=== PATIENT | male | born 1955 | race Caucasian/White ===

== ENCOUNTER 2017-12-14 08:50 | Day surgery (SDC) | payer OTHER ==
[~2017-12-14] VITALS: Ht 180.3 cm; Wt 95.7 kg
[~2017-12-14 08:50] MED LIST: ALLO300 PO; ATOR10 PO; INDO25 PO; Lisinopril2.5 MG PO
[2018-08-21] MEDS ORDERED: LORA1 PO (09:03)
[2018-08-21] MEDS ORDERED: Zofran8 MG PO (09:03)
[2018-08-21] MEDS ORDERED: OXYC5 PO (09:03)
[2018-08-21] MEDS ORDERED: Banophen25 MG PO (09:05)
[2018-08-21] MEDS ORDERED: NEOMYCIN PO (09:06)
[2018-08-21] MEDS ORDERED: METR500 PO (09:08)
[2018-08-26] MEDS ORDERED: Percocet 5-3251 EACH PO (10:43)
== END 2017-12-14 11:14 | disposition home or self-care (01) ==
LOC: ORSCSDS 08:50
PROVIDERS: Internal Medicine Gastroenterology
PROC: 0DBH8ZX Excision of Cecum, Via Natural or Artificial Opening Endoscopic, Diagnostic (ICD-10-PCS; principal; 2017-12-14 10:15)
PROC: 0DBN8ZX Excision of Sigmoid Colon, Via Natural or Artificial Opening Endoscopic, Diagnostic (ICD-10-PCS; principal; 2017-12-14 10:15)
PROC: 0DBK8ZX Excision of Ascending Colon, Via Natural or Artificial Opening Endoscopic, Diagnostic (ICD-10-PCS; principal; 2017-12-14 10:15)
PROC: 0DBM8ZX Excision of Descending Colon, Via Natural or Artificial Opening Endoscopic, Diagnostic (ICD-10-PCS; principal; 2017-12-14 10:15)
DX: Z86.010 Personal history of colon polyps (principal); C18.0 Malignant neoplasm of cecum; D12.2 Benign neoplasm of ascending colon; D12.4 Benign neoplasm of descending colon; D12.5 Benign neoplasm of sigmoid colon; K64.8 Other hemorrhoids; I10 Essential (primary) hypertension; E78.5 Hyperlipidemia, unspecified; D64.9 Anemia, unspecified; Z79.899 Other long term (current) drug therapy
CPT/HCPCS: 88305

== ENCOUNTER 2018-01-18 11:33 | Inpatient (IN) | payer OTHER ==
[~2018-01-18] VITALS: Ht 180.3 cm; Wt 94.8 kg
[2018-01-30] MEDS ORDERED: Ferrous Sulfat325 MG PO (09:42)
[2018-02-01 04:19] LABS: BASOPHILS ABSOLUTE AUTO 0.01 K/mm3 (0.00-0.23); BASOPHILS PERCENT AUTO 0 % (0-2); EOSINOPHILS ABSOLUTE AUTO 0.06 K/mm3 (0.00-0.68); EOSINOPHILS PERCENT AUTO 1 % (0-6); Hematocrit 39.6 % (37.0-53.0); Hemoglobin 12.7 g/dL (13.5-17.5); IMMATURE GRAN ABSOLUTE AUTO 0.05 K/mm3 (0.00-0.10); IMMATURE GRAN PERCENT AUTO 1 % (0-1); LYMPHOCYTES ABSOLUTE AUTO 1.41 K/mm3 (0.84-5.20); LYMPHOCYTES PERCENT AUTO 24 % (21-46); MONOCYTES ABSOLUTE AUTO 1.12 K/mm3 (0.16-1.47); MONOCYTES PERCENT AUTO 19 % (4-13); Mean Corpuscular HGB 30.2 pg (26.0-34.0); Mean Corpuscular HGB Conc 32.1 g/dL (31.5-36.5); Mean Corpuscular Volume 94 fL (80-100); Mean Platelet Volume 10.7 fL (9.1-12.4); NEUTROPHILS ABSOLUTE AUTO 3.32 K/mm3 (1.96-9.15); NEUTROPHILS PERCENT AUTO 56 % (41-73); Platelet Count 203 K/mm3 (150-400); RDW Coefficient Variation 14.4 % (11.7-14.2); White Blood Cell Count 5.97 K/mm3 (4.00-11.30)
[2018-02-01 04:42] LABS: Percent Saturation 11.1 % (20.0-50.0)
[2018-02-01 05:16] LABS: Anion Gap 8 mmol/L (6-16); Blood Urea Nitrogen 10 mg/dL (8-24); Bun/Creatinine Ratio 12.8 (12.0-20.0); CO2, Blood 25 mmol/L (21-32); Calcium, Blood 8.3 mg/dL (8.5-10.1); Chloride, Blood 106 mmol/L (98-108); Creatinine, Blood 0.78 mg/dL (0.60-1.20); Glomerular Filtration Rate >60 (60-); Glucose, Blood 118 mg/dL (70-99); Potassium, Blood 3.9 mmol/L (3.5-5.5); Sodium, Blood 139 mmol/L (136-145)
[2018-02-01 09:40] LABS: Anion Gap 10 mmol/L (6-16); Blood Urea Nitrogen 9 mg/dL (8-24); Bun/Creatinine Ratio 12.1 (12.0-20.0); CO2, Blood 23 mmol/L (21-32); Calcium, Blood 8.1 mg/dL (8.5-10.1); Chloride, Blood 105 mmol/L (98-108); Creatinine, Blood 0.74 mg/dL (0.60-1.20); Glomerular Filtration Rate >60 (60-); Glucose, Blood 204 mg/dL (70-99); Magnesium, Blood 2.3 mg/dL (1.6-2.4); Potassium, Blood 4.1 mmol/L (3.5-5.5); Sodium, Blood 138 mmol/L (136-145); Troponin I 0.021 ng/mL (0.000-0.040)
[2018-02-04] MEDS ORDERED: LISI5 PO (10:36)
[2018-02-04] MEDS ORDERED: CARV3.125 PO (10:37)
== END 2018-02-04 13:57 | disposition home or self-care (01) | DRG 897 ==
LOC: SURS 01-31 07:21 → PRE IP 01-31 08:45 → SURS 01-31 09:57
PROVIDERS: Family Medicine; Hospitalist; Surgery
PROC: B5131ZA Fluoroscopy of Right Jugular Veins using Low Osmolar Contrast, Guidance (ICD-10-PCS; 2018-02-03)
PROC: 05HM33Z Insertion of Infusion Device into Right Internal Jugular Vein, Percutaneous Approach (ICD-10-PCS; principal; 2018-02-03 12:15)
DX: F10.239 Alcohol dependence with withdrawal, unspecified (principal); C18.0 Malignant neoplasm of cecum; I47.2 Ventricular tachycardia; I42.9 Cardiomyopathy, unspecified; I10 Essential (primary) hypertension; E78.5 Hyperlipidemia, unspecified; M10.9 Gout, unspecified; D50.9 Iron deficiency anemia, unspecified; K21.9 Gastro-esophageal reflux disease without esophagitis; Z88.0 Allergy status to penicillin; Z79.899 Other long term (current) drug therapy
CPT/HCPCS: 36415; 77001; 80048; 82607; 82728; 82746; 83540; 83550; 83735; 84443; 84484; 85025; 93005; 93010; 93306; C1788; J0330; J0690; J1100; J1642; J1956; J2060; J2250; J2405; J2765; J3010; J3411; J3475; J7042; J7120

== ENCOUNTER → 2018-05-10 | Outpatient (CLI) | payer OTHER ==
[~2018-05-10] MED LIST changes: +CARV3.125 PO; +Ferrous Sulfat325 MG PO; +LISI5 PO
== END ==
LOC: LAB SHORT 16:20 → LAB 16:20
DX: L02.91 Cutaneous abscess, unspecified (principal)
CPT/HCPCS: 87070; 87077; 87147; 87186; 87205

== ENCOUNTER 2018-05-23 17:49 | Emergency (ER) | payer OTHER ==
[~2018-05-23] VITALS: Ht 188 cm; Wt 77.1 kg
[2018-05-23 18:18] LABS: BASOPHILS ABSOLUTE AUTO 0.02 K/mm3 (0.00-0.23); BASOPHILS PERCENT AUTO 1 % (0-2); EOSINOPHILS ABSOLUTE AUTO 0.08 K/mm3 (0.00-0.68); EOSINOPHILS PERCENT AUTO 2 % (0-6); Hematocrit 31.7 % (37.0-53.0); Hemoglobin 10.6 g/dL (13.5-17.5); IMMATURE GRAN ABSOLUTE AUTO 0.01 K/mm3 (0.00-0.10); IMMATURE GRAN PERCENT AUTO 0 % (0-1); LYMPHOCYTES ABSOLUTE AUTO 1.12 K/mm3 (0.84-5.20); LYMPHOCYTES PERCENT AUTO 33 % (21-46); MONOCYTES ABSOLUTE AUTO 0.74 K/mm3 (0.16-1.47); MONOCYTES PERCENT AUTO 21 % (4-13); Mean Corpuscular HGB 32.5 pg (26.0-34.0); Mean Corpuscular HGB Conc 33.4 g/dL (31.5-36.5); Mean Corpuscular Volume 97 fL (80-100); Mean Platelet Volume 10.6 fL (9.1-12.4); NEUTROPHILS ABSOLUTE AUTO 1.48 K/mm3 (1.96-9.15); NEUTROPHILS PERCENT AUTO 43 % (41-73); Platelet Count 201 K/mm3 (150-400); RDW Coefficient Variation 18.6 % (11.7-14.2); Red Blood Cell Count 3.26 M/mm3 (4.30-5.90); White Blood Cell Count 3.45 K/mm3 (4.00-11.30)
[2018-05-23 18:39] LABS: Alanine Aminotransfer (ALT/SGP 22 U/L (12-78); Albumin/Globulin Ratio 0.8 (0.8-1.8); Alk Phos 157 U/L (50-136); Anion Gap 11 mmol/L (6-16); Aspartate Aminotrans (AST/SGOT 21 U/L (12-37); Bilirubin, Total 0.6 mg/dL (0.1-1.0); Blood Urea Nitrogen 10 mg/dL (8-24); Bun/Creatinine Ratio 15.2 (12.0-20.0); CO2, Blood 22 mmol/L (21-32); Chloride, Blood 107 mmol/L (98-108); Creatinine, Blood 0.66 mg/dL (0.60-1.20); Globulin, Blood 3.7 g/dL (2.2-4.0); Glomerular Filtration Rate >60 (60-); Glucose, Blood 132 mg/dL (70-99); Potassium, Blood 3.6 mmol/L (3.5-5.5); Sodium, Blood 140 mmol/L (136-145); Total Protein, Blood 6.7 g/dL (6.4-8.2)
== END 2018-05-23 20:42 | disposition home or self-care (01) ==
LOC: ER 17:49
PROVIDERS: Emergency Medicine
DX: R10.11 Right upper quadrant pain (principal); R10.31 Right lower quadrant pain; G89.29 Other chronic pain; E78.5 Hyperlipidemia, unspecified; Z88.0 Allergy status to penicillin; Z79.899 Other long term (current) drug therapy
CPT/HCPCS: 74022; 80053; 83690; 85025; 86850; 86900; 86901; 96361; 96374; 99284-25; J3010; J7030

== ENCOUNTER 2018-10-23 14:25 | Inpatient (IN) | payer OTHER ==
[~2018-10-23] VITALS: Ht 182.9 cm; Wt 85.4 kg
[~2018-10-23 14:25] MED LIST changes: +Banophen25 MG PO; +LORA1 PO; +METR500 PO; +NEOMYCIN PO; +OXYC5 PO; +Percocet 5-3251 EACH PO; +Zofran8 MG PO
[2018-10-23 15:55] LABS: BASOPHILS ABSOLUTE AUTO 0.01 K/mm3 (0.00-0.23); BASOPHILS PERCENT AUTO 1 % (0-2); EOSINOPHILS ABSOLUTE AUTO 0.01 K/mm3 (0.00-0.68); EOSINOPHILS PERCENT AUTO 1 % (0-6); Hemoglobin 10.3 g/dL (13.5-17.5); IMMATURE GRAN ABSOLUTE AUTO 0.04 K/mm3 (0.00-0.10); IMMATURE GRAN PERCENT AUTO 2 % (0-1); LYMPHOCYTES ABSOLUTE AUTO 0.49 K/mm3 (0.84-5.20); LYMPHOCYTES PERCENT AUTO 28 % (21-46); MONOCYTES ABSOLUTE AUTO 0.15 K/mm3 (0.16-1.47); MONOCYTES PERCENT AUTO 9 % (4-13); Mean Corpuscular HGB Conc 31.2 g/dL (31.5-36.5); Mean Corpuscular Volume 93 fL (80-100); NEUTROPHILS ABSOLUTE AUTO 1.03 K/mm3 (1.96-9.15); NEUTROPHILS PERCENT AUTO 60 % (41-73); Platelet Count 118 K/mm3 (150-400); RDW Coefficient Variation 17.1 % (11.7-14.2); RDW Standard Deviation 59.1 fL (35.1-46.3); Red Blood Cell Count 3.55 M/mm3 (4.30-5.90); White Blood Cell Count 1.73 K/mm3 (4.00-11.30)
[2018-10-23 16:15] LABS: International Normalized Ratio 2.99; Prothrombin Time Results 28.7 Sec (9.7-11.5)
[2018-10-23 16:19] LABS: Alanine Aminotransfer (ALT/SGP 76 U/L (12-78); Albumin, Blood 2.4 g/dL (3.4-5.0); Albumin/Globulin Ratio 0.7 (0.8-1.8); Alk Phos 411 U/L (50-136); Anion Gap 14 mmol/L (6-16); Aspartate Aminotrans (AST/SGOT 149 U/L (12-37); Bilirubin, Total 1.6 mg/dL (0.1-1.0); Blood Urea Nitrogen 19 mg/dL (8-24); Bun/Creatinine Ratio 23.3 (12.0-20.0); CO2, Blood 23 mmol/L (21-32); Calcium, Blood 7.6 mg/dL (8.5-10.1); Chloride, Blood 94 mmol/L (98-108); Creatinine, Blood 0.82 mg/dL (0.60-1.20); Globulin, Blood 3.3 g/dL (2.2-4.0); Glomerular Filtration Rate >60 (60-); Glucose, Blood 230 mg/dL (70-99); Potassium, Blood 4.3 mmol/L (3.5-5.5); Sodium, Blood 131 mmol/L (136-145); Total Protein, Blood 5.7 g/dL (6.4-8.2)
[2018-10-23] MEDS ORDERED: ALBU90OI INH (16:26)
[2018-10-24 00:32] LABS: Bilirubin, Urine Neg (Neg); Blood, Urine Neg (Neg); Glucose Qualitative, Urine Neg (Neg); Ketones, Urine Neg (Neg); Leukocyte Esterase, Urine Neg (Neg); Nitrite, Urine Neg (Neg); Protein, Urine Neg (Neg); Source, Urine Clean Catch; Urobilinogen, Urine NORM (Normal)
[2018-10-24 00:37] LABS: Appearance, Urine Clear (Clear); Color, Urine Yellow (P-Yellow)
--- NOTE | 2018-10-24 04:29 | NUR ---
SHIFT SUMMARY PT ADMITTED FOR PNEUMONIA. ALERT AND ORIENTED, HAS HISTORY OF ASBERGERS. USES THE URINAL AT BEDSIDE WITHOUT DIFFICULTIES. PT CAREGIVER HERE UPON PT ARRIVAL TO UNIT. 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 PT DENIES ANY PAIN UPON ARRIVAL, WILL CONTINUE TO MONITOR.
[2018-10-24 05:45] LABS: BASOPHILS ABSOLUTE AUTO 0.01 K/mm3 (0.00-0.23); BASOPHILS PERCENT AUTO 1 % (0-2); EOSINOPHILS ABSOLUTE AUTO 0.04 K/mm3 (0.00-0.68); EOSINOPHILS PERCENT AUTO 2 % (0-6); Hemoglobin 11.5 g/dL (13.5-17.5); IMMATURE GRAN ABSOLUTE AUTO 0.03 K/mm3 (0.00-0.10); IMMATURE GRAN PERCENT AUTO 2 % (0-1); LYMPHOCYTES ABSOLUTE AUTO 0.61 K/mm3 (0.84-5.20); LYMPHOCYTES PERCENT AUTO 32 % (21-46); MONOCYTES ABSOLUTE AUTO 0.22 K/mm3 (0.16-1.47); MONOCYTES PERCENT AUTO 11 % (4-13); Mean Corpuscular HGB 28.4 pg (26.0-34.0); Mean Corpuscular HGB Conc 31.9 g/dL (31.5-36.5); Mean Platelet Volume 12.3 fL (9.1-12.4); NEUTROPHILS ABSOLUTE AUTO 1.02 K/mm3 (1.96-9.15); NEUTROPHILS PERCENT AUTO 53 % (41-73); Platelet Count 124 K/mm3 (150-400); RDW Coefficient Variation 17.1 % (11.7-14.2); RDW Standard Deviation 55.4 fL (35.1-46.3); Red Blood Cell Count 4.05 M/mm3 (4.30-5.90); White Blood Cell Count 1.93 K/mm3 (4.00-11.30)
[2018-10-24 05:53] LABS: Mean Corpuscular Volume 89 fL (80-100)
[2018-10-24 06:08] LABS: Anion Gap 10 mmol/L (6-16); Blood Urea Nitrogen 16 mg/dL (8-24); CO2, Blood 25 mmol/L (21-32); Calcium, Blood 7.4 mg/dL (8.5-10.1); Chloride, Blood 96 mmol/L (98-108); Glomerular Filtration Rate >60 (60-); Glucose, Blood 150 mg/dL (70-99); Potassium, Blood 3.9 mmol/L (3.5-5.5); Sodium, Blood 131 mmol/L (136-145)
--- NOTE | 2018-10-24 08:33 | NUR ---
RECHECKED PATIENTS HEART RATE, WAS IN 130S. DR. MUÑOZ NOTIFIED. TELE ORDERED. MEDICATED PER EMAR. PATIENT ASYMPTOMATIC. RN WILL CONTINUE TO MONITOR.
--- NOTE | 2018-10-24 09:23 | NUR ---
VOCATIONAL REHABILITATION CONSULTANT CALLED TO REPORT A HEART RATE IN THE 160S. DR. MUÑOZ NOTIFIED.
[2018-10-24 12:31] LABS: International Normalized Ratio 2.28; Prothrombin Time Results 22.4 Sec (9.7-11.5)
[2018-10-24 13:34] LABS: Magnesium, Blood 1.5 mg/dL (1.6-2.4)
[2018-10-24 13:37] LABS: Phosphorus, Blood 1.8 mg/dL (2.5-4.9); Thyroid Stimulating Hormone 3.41 uIU/mL (0.360-4.800)
[2018-10-24 17:17] LABS: Vancomycin, Trough 10.3 ug/mL (5.0-10.0)
--- NOTE | 2018-10-24 17:19 | NUR ---
SHIFT SUMMARY PATIENT A&O X4, SBA TO BATHROOM. USES URINAL AT THE BEDSIDE APPROPRIATEY. DENIES SOB. MEDICATED X1 FOR PAIN AND NAUSEA THIS SHIFT. STATES PAIN IS IN HIS ABDOMINAL AREA, RESOLVED WITH MEDICATION. TELE AFIB @ 150-160 AT BEGINGING OF THE SHIFT. NEW ONSET. DR. MUÑOZ NOTIFEID. WENT FOR CT TODAY. RESTED THROUGHOUT THE SHIFT. FAMILY CAME BY TO VISIT. BED IN LOWEST POWITION, CALL LIGHT IS WITHIN REACH. NO OTHER ACUTE CHANGES, RN WILL CONINUE TO MONITOR.
--- NOTE | 2018-10-24 18:45 | NUR ---
Mr. Briggs, "Jorgito" was welcoming of visit. He appeared to slip in and out of lucidity--falling asleep mid-sentance. He tells me he knows his cancer dc is not going well. He states that he is not afraid of . That said, he does not think he is nearing the end of his journey. He lives alone, but tells me has strong support of good friends. We was appreciaitive of prayer and gentle encouragement. We had an easy rapport. I will remain available.
--- NOTE | 2018-10-25 05:33 | NUR ---
SHIFT SUMMARY PT HAD UNEVENTFUL NIGHT. TELE READS AFIB AT 95 PER TEMPERING KILN TENDER. PT AWAKE THIS AM. ASKING ABOUT HIS ROQUE TIFF, UNABLE TO FIND. CALL PLACED TO RADIOLOGY AND ER, NOT FOUND. WILL HAVE DAY NURSE CALL LOST AND FOUND TO SEE IF IT'S THERE. ALSO PT TO CALL CAREGIVER AND SEE IF SHE HAS IT. PT DENIES ANY PAIN. WILL CONTINUE TO MONITOR.
[2018-10-25 05:39] LABS: BASOPHILS PERCENT AUTO 0 % (0-2); EOSINOPHILS ABSOLUTE AUTO 0.03 K/mm3 (0.00-0.68); EOSINOPHILS PERCENT AUTO 2 % (0-6); Hematocrit 38.8 % (37.0-53.0); Hemoglobin 12.5 g/dL (13.5-17.5); IMMATURE GRAN ABSOLUTE AUTO 0.01 K/mm3 (0.00-0.10); IMMATURE GRAN PERCENT AUTO 1 % (0-1); LYMPHOCYTES ABSOLUTE AUTO 0.58 K/mm3 (0.84-5.20); LYMPHOCYTES PERCENT AUTO 36 % (21-46); MONOCYTES ABSOLUTE AUTO 0.22 K/mm3 (0.16-1.47); MONOCYTES PERCENT AUTO 14 % (4-13); Mean Corpuscular HGB 28.5 pg (26.0-34.0); Mean Corpuscular HGB Conc 32.2 g/dL (31.5-36.5); Mean Corpuscular Volume 88 fL (80-100); Mean Platelet Volume 11.9 fL (9.1-12.4); NEUTROPHILS ABSOLUTE AUTO 0.78 K/mm3 (1.96-9.15); NEUTROPHILS PERCENT AUTO 48 % (41-73); Platelet Count 198 K/mm3 (150-400); RDW Coefficient Variation 17.3 % (11.7-14.2); RDW Standard Deviation 55.2 fL (35.1-46.3); Red Blood Cell Count 4.39 M/mm3 (4.30-5.90); White Blood Cell Count 1.62 K/mm3 (4.00-11.30)
[2018-10-25 06:08] LABS: Alanine Aminotransfer (ALT/SGP 45 U/L (12-78); Albumin, Blood 2.1 g/dL (3.4-5.0); Albumin/Globulin Ratio 0.7 (0.8-1.8); Alk Phos 390 U/L (50-136); Anion Gap 10 mmol/L (6-16); Aspartate Aminotrans (AST/SGOT 86 U/L (12-37); Bilirubin, Total 1.3 mg/dL (0.1-1.0); Blood Urea Nitrogen 12 mg/dL (8-24); Bun/Creatinine Ratio 16.1 (12.0-20.0); CO2, Blood 27 mmol/L (21-32); Calcium, Blood 7.5 mg/dL (8.5-10.1); Chloride, Blood 97 mmol/L (98-108); Creatinine, Blood 0.75 mg/dL (0.60-1.20); Glomerular Filtration Rate >60 (60-); Glucose, Blood 107 mg/dL (70-99); Potassium, Blood 4.2 mmol/L (3.5-5.5); Sodium, Blood 134 mmol/L (136-145); Total Protein, Blood 5.1 g/dL (6.4-8.2)
--- NOTE | 2018-10-25 16:01 | NUR ---
SHIFT SUMMARY NO ACUTE CHANGES. PATIENT RESTED MOST OF DAY. MEDICATED X 1 FOR PAIN. DENIES SHORTNESS OF BREATH OR NAUSEA. DOCTOR DISCUSSED HOSPICE WITH PATIENT. NO DECISION MADE YET. CALL LIGHT IN REACH, WILL CONTINUE TO MONITOR.
--- NOTE | 2018-10-25 20:10 | NUR ---
Attempted to see pt twice this evening. Last attempt pt was asleep in a darkened room after dinner meal. He did not awaken to verbal or gentle tactile stimuli. Will report to [facility] staff working tomorrow re: conversations with Dr Gibbs and plan for [facility] visit.
--- NOTE | 2018-10-26 04:14 | NUR ---
SHIFT SUMMARY PT ADMITTED FOR PNEUMONIA WITH CHEST X-RAY SHOWING BILATERAL PLEURAL EFFUSIONS WITH THE LEFT GREATER THEN THE RIGHT. PT NEEDS A SPUTUM CULTURE BUT UNABLE TO OBTAIN SO FAR THIS SHIFT PT HAS NOT APPEARED TO HAVE A COUGH. FULL CODE. NEUTROPENIC DIET. TELE-A-FIB WITH PVCS AT A RATE OF 124 PER REFRIGERATOR CRATER. CARDIOLOGY CONSULT ORDERED FOR DVT WITH ELEVATED INR AT 2.99 FROM LIVER METS NO ON COUMADIN AND NEW ONSET A-FIB WITH RVT AT A RATE OF 150-160. 20 G IV TO L WRIST AND R AC. STANDBY ASSIST WITH TRANSFERS PER REPORT. TAKES MEDICATIONS WHOLE WITH WATER. PT HAS A MEDIPORT TO RIGHT CHEST THAT IS NOT ACCESSED. THE PT PRESENTED TO THE ED WITH C/O COUGH. THE PT HAS A PAST HISTORY OF COLON CANCER S/P COLECTOMY WITH METS TO THE LIVER AND LUNGS. THE PT RESTARTED CHEMO LAST WEEK PER REPORT. THE PT ALSO HAS A PAST HISTORY OF ALCOHOLIC CARDIOMYOPATHY WITH AND EF OF 25%. 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 IT HAS BEEN DISCUSSED AND RECOMMENDED THAT PT DISCUSS CODE STATUS WITH PALLIATIVE CARE. THE PT STATED THAT HE WOULD LIKE HIS SISTER TO BE INVOLVED, NUMBER IS ON THE BOARD. THE PT REPORTS THAT HE IS COLD FREQUENTLY, WARM BLANKETS AND INCREASED HEAT. THE PT APPEARS TO BE SLEEPING COMFORTABLY AT THIS TIME WITH NO APPARENT SIGNS OF ACUTE DISTRESS. ABLE TO MAKE NEEDS KNOWN AND CALL LIGHT IN REACH.
[2018-10-26 06:06] LABS: BASOPHILS ABSOLUTE AUTO 0.01 K/mm3 (0.00-0.23); BASOPHILS PERCENT AUTO 0 % (0-2); EOSINOPHILS ABSOLUTE AUTO 0.03 K/mm3 (0.00-0.68); EOSINOPHILS PERCENT AUTO 1 % (0-6); Hematocrit 37.9 % (37.0-53.0); Hemoglobin 11.7 g/dL (13.5-17.5); IMMATURE GRAN ABSOLUTE AUTO 0.01 K/mm3 (0.00-0.10); IMMATURE GRAN PERCENT AUTO 0 % (0-1); LYMPHOCYTES ABSOLUTE AUTO 1.04 K/mm3 (0.84-5.20); LYMPHOCYTES PERCENT AUTO 40 % (21-46); MONOCYTES ABSOLUTE AUTO 0.36 K/mm3 (0.16-1.47); MONOCYTES PERCENT AUTO 14 % (4-13); Mean Corpuscular HGB 28.1 pg (26.0-34.0); Mean Corpuscular HGB Conc 30.9 g/dL (31.5-36.5); Mean Platelet Volume 11.3 fL (9.1-12.4); NEUTROPHILS ABSOLUTE AUTO 1.13 K/mm3 (1.96-9.15); NEUTROPHILS PERCENT AUTO 44 % (41-73); Platelet Count 189 K/mm3 (150-400); RDW Coefficient Variation 18.1 % (11.7-14.2); RDW Standard Deviation 58.1 fL (35.1-46.3); Red Blood Cell Count 4.17 M/mm3 (4.30-5.90); White Blood Cell Count 2.58 K/mm3 (4.00-11.30)
[2018-10-26 06:10] LABS: Mean Corpuscular Volume 91 fL (80-100)
[2018-10-26 06:21] LABS: International Normalized Ratio 1.42; Prothrombin Time Results 14.6 Sec (9.7-11.5)
[2018-10-26 06:28] LABS: Alanine Aminotransfer (ALT/SGP 38 U/L (12-78); Albumin, Blood 1.9 g/dL (3.4-5.0); Albumin/Globulin Ratio 0.6 (0.8-1.8); Alk Phos 392 U/L (50-136); Anion Gap 8 mmol/L (6-16); Aspartate Aminotrans (AST/SGOT 73 U/L (12-37); Bilirubin, Total 1.1 mg/dL (0.1-1.0); Blood Urea Nitrogen 11 mg/dL (8-24); Bun/Creatinine Ratio 14.2 (12.0-20.0); CO2, Blood 28 mmol/L (21-32); Calcium, Blood 7.3 mg/dL (8.5-10.1); Chloride, Blood 98 mmol/L (98-108); Creatinine, Blood 0.78 mg/dL (0.60-1.20); Glomerular Filtration Rate >60 (60-); Glucose, Blood 91 mg/dL (70-99); Potassium, Blood 3.8 mmol/L (3.5-5.5); Sodium, Blood 134 mmol/L (136-145); Total Protein, Blood 4.9 g/dL (6.4-8.2)
--- NOTE | 2018-10-26 08:51 | NUR ---
AFIB RATE IN 160S, CALLED DR MUÑOZ. SHE STATES TO WAIT UNTIL PO METOPROLOL TAKES EFFECT, PT IS ASYMPTOMATIC (ASIDE FROM VAGUE MILD NAUSEA) AND HE IS VERY SENSITIVE TO BP MEDS. PT WILL DC WITH HOSPICE TODAY MOST LIKELY. WILL RECHECK IN 10 MINUTES.
[2018-10-26] MEDS ORDERED: Bisac-Evac10 MG PR (13:51)
[2018-10-26] MEDS ORDERED: ALBU3IS INH (13:51)
[2018-10-26] MEDS ORDERED: METO25 PO (13:52)
[2018-10-26] MEDS ORDERED: ACET120S PR (13:55)
[2018-10-26] MEDS ORDERED: HYOS.125 SL (13:56)
[2018-10-26] MEDS ORDERED: HALO.5 PO (13:56)
[2018-10-26] MEDS ORDERED: LORA.5 PO (13:57)
[2018-10-26] MEDS ORDERED: PROC5 PO (13:57)
--- NOTE | 2018-10-26 15:22 | NUR ---
DISCHARGE SUMMARY JOLYNN LEFT WITH HIS FRIEND TO GO HOME WITH HOSPICE. MEDS FAXED TO [facility] IN [place]. PAPERWORK REVIEWED, PIVS REMOVED. DENIED PAIN. PRIOR TO TELE GETTING REMOVED, PT WAS AFIB IN 160S. 2 DOSES OF 12.5MG METOPROLOL PO GIVEN PER DR MUÑOZ. NO FURTHER INTERVENTIONS AT THIS TIME. PT ASYMPTOMATIC WITH AFIB RATE. SBA IN ROOM. TOOK PILLS PRESCRIBED. DALIA SMITH SPOKE AT LENGTH W PT FOR ARRANGING NEBULIZER, PT WILL STATION ENGINEER ON THEIR WAY HOME FROM [facility]. LEFT AT 1505.
== END 2018-10-26 14:47 | disposition hospice, home (50) | DRG 871 ==
LOC: ER 14:25 → MEDS 18:55
PROVIDERS: Internal Medicine; Physician Assistant; ADMIT Student in an Organized Health Care Education/Training Program
DX: A41.9 Sepsis, unspecified organism (principal); J18.9 Pneumonia, unspecified organism; I50.22 Chronic systolic (congestive) heart failure; C78.7 Secondary malignant neoplasm of liver and intrahepatic bile duct; C78.00 Secondary malignant neoplasm of unspecified lung; C18.0 Malignant neoplasm of cecum; I42.6 Alcoholic cardiomyopathy; I82.442 Acute embolism and thrombosis of left tibial vein; I82.890 Acute embolism and thrombosis of other specified veins; R65.20 Severe sepsis without septic shock; Z92.21 Personal history of antineoplastic chemotherapy; M10.9 Gout, unspecified; E78.5 Hyperlipidemia, unspecified; Z90.49 Acquired absence of other specified parts of digestive tract; F10.10 Alcohol abuse, uncomplicated; I48.91 Unspecified atrial fibrillation; I10 Essential (primary) hypertension; D50.9 Iron deficiency anemia, unspecified; Z51.5 Encounter for palliative care
CPT/HCPCS: 36415; 71046; 71260; 80048; 80053; 80202; 81003; 83605; 83735; 83880; 84100; 84145; 84443; 85025; 85610; 85730; 87040; 87086; 93005; 93010; 93308; 93321; 93971; 94640; 94760; 96361; 96365; 96366; 96367; 96375; 99285-25; J1940; J1956; J2405; J3370; J7120; Q9967

== ENCOUNTER 2018-11-22 09:29 | Inpatient (IN) | payer OTHER ==
[~2018-11-22] VITALS: Ht 182.9 cm; Wt 78.1 kg
[~2018-11-22 09:29] MED LIST changes: +ACET120S PR; +ALBU90OI INH; +Bisac-Evac10 MG PR; +HALO.5 PO; +HYOS.125 SL
[2018-11-22 10:40] LABS: BASOPHILS ABSOLUTE AUTO 0.04 K/mm3 (0.00-0.23); BASOPHILS PERCENT AUTO 0 % (0-2); EOSINOPHILS ABSOLUTE AUTO 0.01 K/mm3 (0.00-0.68); EOSINOPHILS PERCENT AUTO 0 % (0-6); Hematocrit 40.7 % (37.0-53.0); Hemoglobin 12.3 g/dL (13.5-17.5); IMMATURE GRAN ABSOLUTE AUTO 0.22 K/mm3 (0.00-0.10); IMMATURE GRAN PERCENT AUTO 2 % (0-1); LYMPHOCYTES ABSOLUTE AUTO 0.55 K/mm3 (0.84-5.20); LYMPHOCYTES PERCENT AUTO 6 % (21-46); MONOCYTES ABSOLUTE AUTO 1.36 K/mm3 (0.16-1.47); MONOCYTES PERCENT AUTO 14 % (4-13); Mean Corpuscular HGB 28.1 pg (26.0-34.0); Mean Corpuscular HGB Conc 30.2 g/dL (31.5-36.5); Mean Corpuscular Volume 93 fL (80-100); Mean Platelet Volume 11.4 fL (9.1-12.4); NEUTROPHILS PERCENT AUTO 77 % (41-73); Platelet Count 336 K/mm3 (150-400); RDW Coefficient Variation 20.6 % (11.7-14.2); RDW Standard Deviation 68.5 fL (35.1-46.3); Red Blood Cell Count 4.37 M/mm3 (4.30-5.90); White Blood Cell Count 9.48 K/mm3 (4.00-11.30)
[2018-11-22 11:01] LABS: Albumin, Blood 2.6 g/dL (3.4-5.0); Albumin/Globulin Ratio 0.6 (0.8-1.8); Bilirubin, Total 2.3 mg/dL (0.1-1.0); Bun/Creatinine Ratio 23.8 (12.0-20.0); Calcium, Blood 9.3 mg/dL (8.5-10.1); Creatinine, Blood 1.47 mg/dL (0.60-1.20); Globulin, Blood 4.2 g/dL (2.2-4.0); Total Protein, Blood 6.8 g/dL (6.4-8.2)
[2018-11-22] MEDS ORDERED: **incomplete med rec (13:05)
[2018-11-22] MEDS ORDERED: ALBU3IS NEB (13:30)
[2018-11-22] MEDS ORDERED: LORA.5 PO (13:31)
[2018-11-22] MEDS ORDERED: METO25 PO (13:32)
[2018-11-22] MEDS ORDERED: PROC5 PO (13:33)
[2018-11-22] MEDS ORDERED: Oxycodone HCl20 M1 PO (13:35)
[2018-11-22] MEDS ORDERED: CARV6.25 PO (13:35)
[2018-11-22] MEDS ORDERED: Ondansetron Odt8 MG MM (13:37)
[2018-11-22] MEDS ORDERED: FURO40 PO (13:38)
[2018-11-22] MEDS ORDERED: POTCHL20ER PO (13:39)
[2018-11-22 14:44] LABS: Magnesium, Blood 2.3 mg/dL (1.6-2.4); Phosphorus, Blood 5.7 mg/dL (2.5-4.9)
--- NOTE | 2018-11-22 16:38 | NUR ---
NURSING PCU ADMISSION/DAYSHIFT SUMMARY: Assumed care of pt at approx 1605. Arrived from ER via gurney, xferred to unit bed via slider sheet. Pt is lethargic, speech is slurred, moans at rest and w/positioning, occasionally yells out. Pt only cooperative w/some aspects of care, tries to get OOB and is pulling at lines. General weakness noted, appears forgetful, impulsive at times. Pt appears frail and thin upon arrival. Tele in place, afib w/HR 120-140's, SBP 90's, 1+ BLE edema. L/S dim t/o w/scattered crackles, respirations shallow and uneven, denies dyspnea, O2 sat low 90's on RA, occ INSTRUCTIONAL SERVICES SPECIALIST cough, cont O2 monitoring in place. Abd moderately distended and firm, tender w/mild palpitation, BT hypoactive, intermittent nausea w/small amt of brown/liquid emesis which pt states is from coffee. Pt incontinent of urine, FC placed for strict I/O, draining dark yellow urine, stat lock in place. PIV x1, 2nd LR bolus infusing, unaccessed mediport noted to RCW. Pt appears fragile at this time. Call light in reach, bed alarm set for safety purposes. Admission d/o received and reviewed. Frequent monitoring and rounding required. Will continue to monitor until rpt is given to NOC RN and will notify PMD of any changes.
[2018-11-22 16:41] LABS: Source, Urine Catheter
[2018-11-22 16:43] LABS: Appearance, Urine Hazy (Clear); Blood, Urine 2+ (Neg); Color, Urine Amber (P-Yellow); Glucose Qualitative, Urine Neg (Neg); Ketones, Urine 1+ (Neg); Leukocyte Esterase, Urine 1+ (Neg); Nitrite, Urine Pos (Neg); Protein, Urine 2+ (Neg); Specific Gravity, Urine 1.025 (1.003-1.022); Urobilinogen, Urine 2+ (Normal)
[2018-11-22 16:47] LABS: Bilirubin, Urine 2+ (Neg)
[2018-11-22 16:57] LABS: U Cannabinoids Screen DETECTED; U Opiates Screen DETECTED
[2018-11-22 16:58] LABS: U Amphetamine Screen Not Detected; U Barbituate Screen Not Detected; U Benzodiazapine Screen DETECTED; U Buprenorphine Screen Not Detected; U Cocaine Screen Not Detected; U Methadone Screen Not Detected; U Methamphetamine Screen Not Detected; U Oxycodone Screen DETECTED; U Phencyclidine Screen Not Detected; U Propoxyphene Screen Not Detected
[2018-11-22 16:59] LABS: Squamous Epithelial Cells Mod /hpf (Few)
[2018-11-22 17:00] LABS: Bacteria Few /hpf; Hyaline Casts 25-50 /lpf (0-2); Red Blood Cells, Urine Not Seen /hpf (0-2)
--- NOTE | 2018-11-22 20:01 | NUR ---
UPDATE: NURSE PRACTIONER CANELO NOTIFIED OF PATIENT'S CRITICAL LACTIC LEVELS. NURSE PRACTIONER CANELO ALSO NOTIFED OF PATIENTS LOWER BLOOD PRESSURE WELL PATIENT'S HEART RATE THAT HAS BEEN TRENDING AFIB IN THE 130'S TO 140'S. CANELO ALSO NOTIFED THAT PATIENT WAS PALCED ON 2L O2 AND IS STATING AT 92%-94%. HOWEVER, PATIENT WILL NOT KEEP O2 IN PLACE, REPLACED EACH TIME. JOSE ALSO NOTIFIED THAT CRACKLES WERE HEARD THROUGHT IN PATIENT'S LUNGS. CANELO NOTIFIED OF PATIENT'S NAUSEA AND SWOLLEN ABD WELL. CANELO STATED THAT HE WOULD REVIEW PATIENT'S CHART AND ENTER ORDERS IF HE FLET IT NEEDED. JOSE AWARE PATIENT IS FULL CODE AT THIS TIME.
--- NOTE | 2018-11-22 20:24 | NUR ---
NURSE PRACTIONER CANELO IN TO SEE PATIENT SEVERAL MINUTES AGO AND ASSESSED PATIENT.
--- NOTE | 2018-11-22 21:00 | NUR ---
CODE STATUS CONFIRMED CODE STATUS WITH GONZALEZ MCKEON; PT IS A DNR IF CARDIAC ARREST OCCURS AGAIN.
--- NOTE | 2018-11-22 21:00 | NUR ---
ASSUMED PT CARE PT INTUBATED WITH ETT 8.0; ADVANCED FROM 25CM TO 26CM AT THE LIP PER KEYLINER CANELO'S ORDERS. PT IS ON NO SEDATION WITH NO RESPONSE TO VERBAL OR PAINFUL STIMULI; NO PURPOSEFUL MOVEMENTS. PUPILS ARE FIXED AT 2MM WITH BILATERAL UPWARD GAZE NOTED. NO COUGH, GAG, OR SWALLOW RELFEX NOTED. VENT SETTINGS: AC 16; TV 400; PEEP 5; FIO2 100% WITH OXYGEN SATURATIONS 100%. COPIOUS AMOUNTS OF COFFEE GROUND/BLOOD TINGED SECRETIONS BEING SUCTIONED FROM OG; TOTAL OF 2000 SUCTIONED POST CARDIAC ARREST. NO FAMILY AT BEDSIDE AT THIS TIME; HOWEVER, REPORTING OFF RN STATED SHE DID CALL AND UPDATE THE FAMILY. PT IS IN BILATERAL SOFT WRIST RESTRAINTS AT THIS TIME. GONZALEZ LEMOS AT BEDSIDE.
--- NOTE | 2018-11-22 21:17 | NUR ---
EVENT NOTE: AT APPROX 2032 RN PRESENT IN ROOM WHEN PATIENT'S BIOX STARTED ALARMING DUE TO O2 STATS BEING IN THE 80'S. RN TURNED TO SEE PATIENT WITH A BLANK LOOK ON HIS FACE AND HIS EYES APPEARED ROLLED BACK INTO HIS HEAD. HEAD OF BED UP AT APPOX A 60 DEGREE ANGLE. PATIENT STILL BREATHING AND STILL HAD A PULSE. HOWEVER THEY WERE SHALLOW AND GASPY BREATHS. CHARGE NURSE JAGRUTI BACON RN CALLED TO THE ROOM AND A RAPID RESPONSE WAS CALLED. CHARGE NURSE PRESENT IN THE ROOM. PATIENT APPEARED TO START VOMITING BROWN LIQUID AT THIS TIME. PATIENT THEN APPEARED TO START AGINAL BREATHING AND NO PULSE WAS ABLE TO BE PALPATED AT THIS TIME. A CODE WAS THEN CALLED (SEE CODE SHEET). PATIENT TRANSFERED TO ICU 13 AND REPORT GIVEN TO CIARA TERRY. PATIENT'S SISTER STEPHEN WAS UPDATED ON CHANGE IN PATIENT CONDITION AND TRANSFER TO ICU. PATIENT'S BREATHING BECAME GASPY AND PATIENT'S EYES ROLLED HACKSAW INSPECTOR CALLED TO ROOM.
[2018-11-22 21:31] LABS: BASOPHILS ABSOLUTE AUTO 0.01 K/mm3 (0.00-0.23); BASOPHILS PERCENT AUTO 0 % (0-2); EOSINOPHILS PERCENT AUTO 0 % (0-6); Hematocrit 34.4 % (37.0-53.0); Hemoglobin 10.3 g/dL (13.5-17.5); IMMATURE GRAN ABSOLUTE AUTO 0.07 K/mm3 (0.00-0.10); IMMATURE GRAN PERCENT AUTO 1 % (0-1); LYMPHOCYTES ABSOLUTE AUTO 0.71 K/mm3 (0.84-5.20); LYMPHOCYTES PERCENT AUTO 11 % (21-46); MONOCYTES ABSOLUTE AUTO 0.95 K/mm3 (0.16-1.47); MONOCYTES PERCENT AUTO 15 % (4-13); Mean Corpuscular HGB 28.5 pg (26.0-34.0); Mean Corpuscular HGB Conc 29.9 g/dL (31.5-36.5); Mean Corpuscular Volume 95 fL (80-100); Mean Platelet Volume 11.5 fL (9.1-12.4); NEUTROPHILS ABSOLUTE AUTO 4.57 K/mm3 (1.96-9.15); NEUTROPHILS PERCENT AUTO 72 % (41-73); Platelet Count 288 K/mm3 (150-400); RDW Coefficient Variation 20.3 % (11.7-14.2); RDW Standard Deviation 69.4 fL (35.1-46.3); Red Blood Cell Count 3.62 M/mm3 (4.30-5.90); White Blood Cell Count 6.31 K/mm3 (4.00-11.30)
[2018-11-22 21:31] LABS: PCO2 Arterial 40.9 mmHg (35-45); PO2 Arterial 182 mmHg (80-100); pH Blood Arterial 7.41 (7.35-7.45)
[2018-11-22 21:50] LABS: International Normalized Ratio 2.96; Prothrombin Time Results 28.4 Sec (9.7-11.5)
[2018-11-22 21:52] LABS: Albumin, Blood 2.1 g/dL (3.4-5.0); Albumin/Globulin Ratio 0.6 (0.8-1.8); Bilirubin, Total 1.6 mg/dL (0.1-1.0); Bun/Creatinine Ratio 25.5 (12.0-20.0); Calcium, Blood 7.8 mg/dL (8.5-10.1); Creatinine, Blood 1.53 mg/dL (0.60-1.20); Globulin, Blood 3.4 g/dL (2.2-4.0); Magnesium, Blood 2.1 mg/dL (1.6-2.4); Phosphorus, Blood 6.4 mg/dL (2.5-4.9); Potassium, Blood 3.7 mmol/L (3.5-5.5); Total Protein, Blood 5.5 g/dL (6.4-8.2); Troponin I 0.034 ng/mL (0.000-0.040)
--- NOTE | 2018-11-22 22:29 | NUR ---
RT x3 responded to RING MAKING MACHINE OPERATOR and eventually code blue in PCU. -No pulses found, CPR and BVM started -Oral sx copious dark brown secretions -ER MD intubated at 2039 with 8.0 ETT 26 at lip initially. Verbal per ER MD to withdraw to 24 at lip. -ETT sx; Large amount of dark brown secretions from ETT, similar to oral sx. -EtCO2 monirot unable to be placed due to large amount of secretions through ETT and would plug up the sensor. -SpO2 was poor quality, PEEP valve added to BVM and set to 10. -During CXR, ETT migrated to 25 when taken. -Post CXR, verbal per Sam CONDITIONER TENDER to advance 1cm to 26 at lip. -2100 PT transported to ICU
--- NOTE | 2018-11-22 23:04 | NUR ---
NOTIFIED PHYSICIAN UPDATE REGARDING LACTIC ACID CRITICALLY AT 6.9; EKG COMPLETED WITH RESULTS OF AFIB WITH RVR; HR 121; LEVOPHED AT 15MCG/MIN WITH SBP 90'S WITH MAP 70; EJECTION FRACTION CONFIRMED AT LESS THAN 20%; MIKE SOLAR INSTALLATION FOREMAN CONFIRMED TO D/C FLUIDS AFTER THIS BAG IS COMPLETED. RECEIVED ORDERS TO START VASOPRESSIN AND MIKE, SOLAR INSTALLATION FOREMAN STATED HE WOULD ENTER REPEAT LABS FOR LACTIC ACID, WELL INPUT MORNING LABS. FAMILY/FRIENDS AT BEDSIDE AT THIS TIME.
--- NOTE | 2018-11-23 00:06 | NUR ---
SPOKE WITH PHYSICIAN MIKE, NEGATIVE TURNER CALLED WANTING AN UPDATE ABOUT FAMILY. ALSO, STATED TO KEEP NS INFUSING AT 75MLS/HR AND TO MONITOR URINE OUTPUT CLOSELY. ORDERS TO UPDATE DR. MAYNARD IN 1-2 HOURS IF PT CONTINUES NOT MAKING URINE.
[2018-11-23 01:39] LABS: Hematocrit 35.9 % (37.0-53.0)
--- NOTE | 2018-11-23 02:30 | NUR ---
UPDATED DR. MAYNARD UPDATED REGARDING LOW URINE OUTPUT; 10CC IN THE LAST TWO HOURS; 35CC TOTAL SINCE 2100 ON 11/22/18. NO NEW ORDERS; DR. MAYNARD WANTS FLUIDS TO MAINTAIN AT 75MLS/HR.
[2018-11-23 05:20] LABS: PCO2 Arterial 36.2 mmHg (35-45); PO2 Arterial 64.3 mmHg (80-100); pH Blood Arterial 7.49 (7.35-7.45)
[2018-11-23 05:22] LABS: Hematocrit 35.6 % (37.0-53.0); Hemoglobin 10.9 g/dL (13.5-17.5); Mean Corpuscular HGB 28.6 pg (26.0-34.0); Mean Corpuscular HGB Conc 30.6 g/dL (31.5-36.5); Mean Corpuscular Volume 93 fL (80-100); Mean Platelet Volume 11.1 fL (9.1-12.4); Platelet Count 328 K/mm3 (150-400); RDW Coefficient Variation 20.3 % (11.7-14.2); RDW Standard Deviation 68.8 fL (35.1-46.3); Red Blood Cell Count 3.81 M/mm3 (4.30-5.90); White Blood Cell Count 6.27 K/mm3 (4.00-11.30)
--- NOTE | 2018-11-23 05:50 | NUR ---
END OF SHIFT SUMMARY PT HAS REMAINED INTUBATED WITH NO SEDATION. NOT ABLE TO FOLLOW ANY COMMANDS; HOWEVER, DOES OPEN EYES SPONTANEOUSLY. PUPILS ARE REACTIVE TO LIGHT, BUT SLUGGISH. GROSS MOTOR MOVEMENT NOTED TO BILATERAL ARMS; NO MOVEMENT NOTED TO BILAT LEGS. WITHDRAWALS FROM PAINFUL/NOXIOUS STIMULI. VENT SETTINGS REMAIN WITH AC 16; TV 400; PEEP 5; FIO2 30%. RR 18-30'S. OXYGEN SATURATIONS MAINTAINING >92%. WESTON CATH IS PATENT AND DRAINING TO GRAVITY; DARK, TEA COLORED URINE WITH MINIMAL OUTPUT THIS SHIFT. DR. MAYNARD AWARE. LEVOPHED CONTINUES AT 11MCG/MIN; VASOPRESSIN AT 0.04UNITS/MIN; NS 75MLS/HR; PROTONIX GTT 10MLS/HR. MEDICATED ONCE WITH FENTANYL 25MCG; APPEARED TO BE EFFECTIVE. OG CONNECTED TO LOW INTERMITTENT SUCTION; TOTAL OF 3250CC OF COFFEE GROUND/BLOOD TINGED/BROWN GASTRIC CONTENTS NOTED. PT HAS REMAINED IN AFIB WITH RVR T/O SHIFT; HR 120-140'S. NO FAMILY AT BEDSIDE AT THIS TIME. PT HAS BEEN REPOSITOINED FREQUENTLY FOR COMFORT.
[2018-11-23 05:55] LABS: BAND PERCENT MAN 31 % (0-8); BASOPHILS PERCENT MAN 0 % (0-2); EOSINOPHILS PERCENT MAN 0 % (0-6); LYMPHOCYTES ABSOLUTE MAN 0.25 K/mm3 (0.84-5.20); LYMPHOCYTES PERCENT MAN 4 % (21-46); METAMYELOCYTE ABSOLUTE MAN 0.12 K/mm3 (0.00-0.00); METAMYELOCYTE PERCENT MAN 2 % (0-0); MONOCYTES ABSOLUTE MAN 0.68 K/mm3 (0.16-1.47); MONOCYTES PERCENT MAN 11 % (4-13); SEG NEUTROPHILS PERCENT MAN 52 % (41-73); TOTAL CELLS COUNTED 100
[2018-11-23 06:00] LABS: Albumin/Globulin Ratio 0.6 (0.8-1.8); Bun/Creatinine Ratio 30.1 (12.0-20.0); Calcium, Blood 7.7 mg/dL (8.5-10.1); Creatinine, Blood 1.46 mg/dL (0.60-1.20); Globulin, Blood 3.3 g/dL (2.2-4.0); Potassium, Blood 3.6 mmol/L (3.5-5.5); Total Protein, Blood 5.3 g/dL (6.4-8.2)
--- NOTE | 2018-11-23 06:45 | NUR ---
PLACED CALL TO DR. MAYNARD REGARDING STARTING PT ON PROPOFOL D/T PT AWAKE AND FOLLOWING COMMANDS; ORDERS TO START PROPOFOL.
--- NOTE | 2018-11-23 07:45 | NUR ---
ASSUMED CARE: REPORT RECEIVED FROM NELSON Wing RN. ASSUMED CARE OF THIS PT AT APPROX 0700. ON ASSESSMENT, THE PT IS RESTING QUIETLY. HE BECAME INCREASINGLY AGITATED T/O HIS ASSESSMENT, SHAKING HIS HEAD, ATTEMPTING TO PULL AT ETT & BECOMING TEARFUL. PROPOFOL HAS BEEN INTITATED FOR SEDATION & COMFORT, PT IS TOLERATING THIS WELL. SLIGHT HYPOTENSION NOTED, MAP REMAINS > 65. VENT SETTINGS: AC 16, TV 400, PEEP 5 & FiO2 30%. ETT IS 8.0 & 26.0 AT THE LIP. WILL CONTINUE TO MONITOR & UPDATE NEEDED.
--- NOTE | 2018-11-23 17:40 | NUR ---
SHIFT SUMMARY: PT REMAINS INTUBATED/SEDATED. THE PT SCOWLS W/ REPOSITIONING BUT IS OTHERWISE RESTING COMFORTABLY. LS REMAIN DIM IN BASES, O2 SATS > 92%. VENT SETTINGS: AC 16, TV 400, PEEP 5 & FiO2 30%. MONITOR SHOWS AFIB, HR 110-130s. LEVOPHED & VASOPRESSIN DOCUMENTED IN FLOWSHEET FOR HYPOTENSION. BT ARE HYPOACTIVE x4. PT IS GUARED & GRIMACES TO ABDOMINAL PALPATION. ABDOMEN IS ROUND & FIRM. WESTON PATENT/DRAINING ELTON COLORED URINE, 160 ML OUT THIS SHIFT. BILAT SOFT WRIST RESTRAINTS IN PLACE. WILL CONTINUE TO MONITOR & REPORT OFF TO ONCOMING RN.
--- NOTE | 2018-11-23 18:00 | NUR ---
Review of pt with driller operator and staff. plan is to contact family in am. They are titrating him down of pressors and will see what diagnositcs reveal to physician in am. concerned about pt debility and if he has the muscle strength to ventilate. He may not be appropriate to transition home. family supposed to come in they did not today. Also will look for more insight from family on why he refused hospice and how his ability to make decisions and functional status to give them strategies for making his future decisions so we stay on track to reduce suffering and hopefull give him some quality time.
--- NOTE | 2018-11-23 18:43 | NUR ---
No family present at time of visit. Prayer provided at bedside. I will remain available to pt and family.
--- NOTE | 2018-11-23 19:15 | NUR ---
ASSUMED PT CARE PT REMAINS INTUBATED AND SEDATED. VENT SETTINGS AC 16; TV 400; PEEP 5; FIO2 30%. PROPOFOL 20MCG/KG/MIN. LEVOPHED CONTINUES AT 10MCG/MIN; VASOPRESSIN 0.04 UNITS/MIN; NS 75MLS/HR; AND PROTONIX GTT 10MLS/HR. NO FAMILY AT BEDSIDE AT THIS TIME. PT APPEARS COMFORTABLE AND NOT IN ANY DISTRESS AT THIS TIME.
[2018-11-23 21:50] LABS: Vancomycin, Trough 20.6 ug/mL (5.0-10.0)
[2018-11-24 04:25] LABS: Hematocrit 32.4 % (37.0-53.0); Mean Corpuscular HGB 28.7 pg (26.0-34.0); Mean Corpuscular HGB Conc 30.9 g/dL (31.5-36.5); Mean Corpuscular Volume 93 fL (80-100); Mean Platelet Volume 11.5 fL (9.1-12.4); Platelet Count 295 K/mm3 (150-400); RDW Coefficient Variation 20.5 % (11.7-14.2); RDW Standard Deviation 68.3 fL (35.1-46.3); Red Blood Cell Count 3.48 M/mm3 (4.30-5.90); White Blood Cell Count 9.16 K/mm3 (4.00-11.30)
[2018-11-24 05:00] LABS: BAND PERCENT MAN 25 % (0-8); BASOPHILS PERCENT MAN 0 % (0-2); EOSINOPHILS PERCENT MAN 0 % (0-6); LYMPHOCYTES ABSOLUTE MAN 0.91 K/mm3 (0.84-5.20); LYMPHOCYTES PERCENT MAN 10 % (21-46); METAMYELOCYTE ABSOLUTE MAN 0.09 K/mm3 (0.00-0.00); METAMYELOCYTE PERCENT MAN 1 % (0-0); MONOCYTES ABSOLUTE MAN 0.64 K/mm3 (0.16-1.47); MONOCYTES PERCENT MAN 7 % (4-13); MYELOCYTE ABSOLUTE MAN 0.09 K/mm3 (0.00-0.00); MYELOCYTE PERCENT MAN 1 % (0-0); NEUTROPHILS ABSOLUTE MAN 7.41 K/mm3 (1.96-9.15); SEG NEUTROPHILS PERCENT MAN 56 % (41-73); TOTAL CELLS COUNTED 100
[2018-11-24 05:55] LABS: PCO2 Arterial 32.6 mmHg (35-45); PO2 Arterial 76.7 mmHg (80-100); pH Blood Arterial 7.51 (7.35-7.45)
[2018-11-24 06:16] LABS: Albumin, Blood 1.8 g/dL (3.4-5.0); Albumin/Globulin Ratio 0.5 (0.8-1.8); Bilirubin, Total 2.2 mg/dL (0.1-1.0); Bun/Creatinine Ratio 31.9 (12.0-20.0); Calcium, Blood 7.5 mg/dL (8.5-10.1); Creatinine, Blood 1.38 mg/dL (0.60-1.20); Globulin, Blood 3.6 g/dL (2.2-4.0); Phosphorus, Blood 3.9 mg/dL (2.5-4.9); Potassium, Blood 3.7 mmol/L (3.5-5.5); Total Protein, Blood 5.4 g/dL (6.4-8.2)
--- NOTE | 2018-11-24 06:30 | NUR ---
SBT/SEDATION VACATION: PT TURNED DOWN TO 10MCG/KG/MIN AT 0510 FOR SBT. PT ABLE TO OPEN EYES TO VERBAL STIMULUS; FOLLOW SIMPLE COMMANDS; AND SHAKE HEAD YES/NO TO QUESTIONS. PT CHANGED TO SPONTANEOUS WITH PRESSURE SUPPORT 8/5 AND FIO2 30% AT 0520. PT MAINTAINED RR 15-25; TV GREATER THAN 400; AND OXYGEN SATURATION GREATER THAN 93%. PT REMAINED CALM AND COOPERATIVE T/O SBT. AFTER TRIAL PT CHANGED BACK TO AC 16; TV 400; PEEP 5; FIO2 30% AND PROPOFOL ADJUSTED BACK TO 20MCG/KG/MIN
--- NOTE | 2018-11-24 06:40 | NUR ---
END OF SHIFT SUMMARY PT HAS REMAINED INTUBATED AND SEDATED T/O SHIFT. VENT SETTINGS AC 16; TV 400; PEEP 5; FIO2 30%. PT ABLE TO OPEN EYES TO VERBAL STIMULUS; FOLLOW COMMANDS; AND SHAKE HEAD YES/NO TO QUESTIONS. PROPOFOL REMAINS AT 20MCG/KG/MIN. PT HAS REMAINED IN AFIB WITH RVR WITH RATE OF 130-140'S. LEVOPHED REMAINS AT 10MCG/MIN; VASOPRESSIN 0.04UNITS/MIN; NS 75MLS/HR; AND PROTONIX AT 10MLS/HR. PT HAS PRODUCED MORE URINE THIS SHIFT, BUT STILL DARK TEA COLORED, VERY CLOUDY, WITH PINK SEDIMENT NOTED IN CATHETER TUBING. OG TUBE STILL PUTTING OUT COFFEE GROUND, DARK BROWN GASTRIC CONTENTS; HOWEVER, ONLY 75CC DOCUMENTED OUTPUT THIS SHIFT; OG CONTINUES AT LOW INTERMITTENT SUCTION. PT HAS BEEN MEDICATED WITH FENTANYL X4 THIS SHIFT; APPEARS EFFECTIVE FOR PT. VERY PAINFUL DURING REPOSITIONING. AT THIS TIME CALL LIGHT IS WITHIN REACH; THE NEWS WAS PUT ON THE TV FOR BACKGROUND NOISE/COMFORT. PT DOES NOT APPEAR TO BE IN ANY DISTRESS AT THIS TIME.
--- NOTE | 2018-11-24 08:00 | NUR ---
INITIAL ASSESSMENT PATIENT INTUBATED AND SEDATED. PATIENT RESPONDS TO NURSING CARE AND PAINFUL STIMULI. PATIENT REPORTED TO FOLLOW COMMANDS AND ANSWER QUESTIONS WITH NODDING AND SHAKING OF HEAD WHEN ON SEDATION VACATION. PATIENT ALSO REPORTED TO HAVE ASPERGER'S AND HAVE SLURRED SPEECH AT BASELINE. PATIENT WEAK BUT MOVES ALL EXTREMITIES. PATIENT HAS NO SIGNS OF PAIN OR DISCOMFORT AT THIS TIME. PATIENT AFEBRILE. PATIENT SATTING WELL ON VENT SETTINGS OF AC 16, TV 400, PEEP 5, FIO2 30%. PATIENT HAS OCCASIONAL COUGH. SCANT AMOUNT OF THICK, BROWN SPUTUM BEING SUCTIONED FROM ETT. PATIENT IN A. FIB, HR 120S TO 140S. MAP OVER 65. PATIENT ON PRESSORS. SCDS IN PLACE. 1+ EDEMA NOTED TO BLES. RADIAL PULSES 2+ IN STRENGTH. PULSES 1+ IN STRENGTH. ABDOMEN MODERATELY DISTENDED, SOFT, NONTENDER, TYMPANIC BS NOTED. OG TO LIS- SMALL AMOUNT OF COFFEE GROUND DRAINAGE NOTED. WESTON DRAINING MINIMAL AMOUNT OF ELTON, CLOUDY, PINK URINE. SCAR NOTED UNDER UMBILICUS. ABRASION TO MID CHEST. COCCYX REDDENED. REDDENED MASSES TO BILAT ELBOWS- REPORTED TO BE GOUT. LEVOPHED INFUSING AT 10 MCG/ MINUTE, PROPOFOL AT 20 MCG/ KG/ MINUTE, NS AT 75 MLS/ HOUR, PROTONIX AT 10 MLS/ HOUR, VASOPRESSIN AT 0.04 UNITS/ MINUTE. PATIENT ON ANTIBIOTICS. BED LOW, CALL LIGHT IN REACH. WILL CONTINUE TO MONITOR PATIENT FREQUENTLY THROUGHOUT SHIFT.
[2018-11-24 10:07] LABS: Source, Urine Catheter
[2018-11-24 10:15] LABS: Appearance, Urine Clear (Clear); Bilirubin, Urine Neg (Neg); Blood, Urine 1+ (Neg); Color, Urine Amber (P-Yellow); Glucose Qualitative, Urine Neg (Neg); Ketones, Urine Neg (Neg); Leukocyte Esterase, Urine 1+ (Neg); Nitrite, Urine Neg (Neg); Protein, Urine 1+ (Neg); Urobilinogen, Urine 1+ (Normal)
[2018-11-24 10:26] LABS: Amorphous Mod (0-Heavy); Bacteria Rare /hpf; Mucus Light (0-Heavy); Red Blood Cells, Urine 0-2 /hpf (0-2); Squamous Epithelial Cells Not Seen /hpf (Few); White Blood Cells, Urine 0-2 /hpf (0-5)
--- NOTE | 2018-11-24 12:00 | NUR ---
PATIENT REMAINS RESTING QUIETLY IN BED. PATIENT AFEBRILE. PATIENT DIAPHORETIC. PATIENT REMAINS SATTING WELL ON SAME VENT SETTINGS. PATIENT HAS MODERATE AMOUNT OF THICK, BROWN SPUTUM BEING SUCTIONED FROM ETT. BS OF 123. VITAL HIGH PROTEIN STARTED AT GOAL RATE OF 10 MLS/ HOUR WITH 30 ML WATER FLUSH Q4H. NO OTHER ACUTE CHANGES TO NOTE ON AT THIS TIME. WILL CONTINUE TO MONITOR.
--- NOTE | 2018-11-24 17:15 | NUR ---
PATIENT REMAINS RESTING QUIETLY IN BED. AFEBRILE. NO SIGNS OF PAIN OR DISCOMFORT. TF DC'D RESIDUAL OF 320 MLS OBTAINED. 250 MLS REINSTILLED. 70 MLS DISCARDED. OG BACK TO LIS- BROWN, GEL-LIKE DRAINAGE. NO OTHER CHANGES TO NOTE ON AT THIS TIME. WILL CONTINUE TO MONITOR.
--- NOTE | 2018-11-24 19:15 | NUR ---
ASSUMED CARE ASSUMED CARE OF PATIENT. REMAINS INTUBATED- AC 16, TV 400, PEEP 5, FIO2 30%. RESP RATE MID-20s TO 30s. 8.0 ETT 26CM @ LIP. SEDATED WITH PROPOFOL @ 20MCG/KG/MIN. PT OPENS EYES SLIGHTLY TO VERBAL STIMULI. SQUEEZES HANDS TO COMMAND. REJI, 2MM. BILATERAL SOFT WRIST RESTRAINTS IN PLACE TO PREVENT SELF-EXTUBATION. MONITOR SHOWS AFIB, RATE 120-140s. BP 97/77 WITH LEVOPHED @ 10MCG/MIN. VASOPRESSIN INFUSING @ 0.04UNITS/MIN PER ORDER. PROTONIX GTT INFUSING @ 8MG/HR (10CC/HR) PER ORDER. NS INFUSING @ 75CC/HR PER ORDER. OG TO LIS WITH COFFEE GROUND, DARK BROWN DRAINAGE. WESTON PATENT WITH PINKISH-ORANGE URINE. SOME SEDIMENT NOTED IN TUBING. PAS TO BLE. SEE SHIFT ASSESSMENT FOR FULL ASSESSMENT.
--- NOTE | 2018-11-24 19:37 | NUR ---
SHIFT SUMMARY PATIENT REMAINED INTUBATED AND SEDATED. PATIENT REMAINS RESPONDING TO PAINFUL STIMULI AND NURSING CARE. PATIENT GIVEN PRN FENTANYL 2 X THIS SHIFT FOR SIGNS OF PAIN. PATIENT HAS BEEN AFEBRILE. PATIENT CONTINUES TO MOVE ALL EXTREMITIES, ALTHOUGH WEAK. PATIENT REMAINED SATTING WELL ON AC 16, TV 400, PEEP 5, FIO2 30%. PATIENT LUNGS CLEAR IN UPPER LOBES AND DIMINISHED IN LOWER LOBES. PATIENT HAS HAD MODERATE AMOUNT OF THICK, BROWN SPUTUM SUCTIONED FROM ETT. PATIENT HAS BEEN IN A. FIB, HR 120S TO 140S. BP STABLE ON PRESSORS. DR'S AWARE OF HR. ABDOMEN MODERATELY DISTENDED, SOFT, WITH TYMPANIC BS. ATTEMPTED TF AT GOAL RATE OF 10 MLS/ HOUR WITH 30 ML WATER FLUSH BUT FIRST RESIDUAL OBTAINED WAS 320 ML. 250 MLS RE[address]ILLED. INFORMED DRBasil AND TUBE FEEDS DC'D FOR NOW. OG RECONNECTED TO LIS- DRAINING DARK BROWN FLUID. PATIENT DID NOT HAVE BM THIS SHIFT. WESTON REMAINS DRAINING ELTON, CLOUDY, PINK URINE- MINIMAL OUTPUT. NO CHANGE TO SKIN. PROPOFOL REMAINS INFUSING AT 20 MCG/ KG/ MINUTE, LEVOPHED AT 10 MCG/ MINUTE, NS AT 75 MLS/ HOUR, PROTONIX AT 10 MLS/ HOUR, AND VASOPRESSIN AT 0.04 UNITS/ MINUTE. UA SENT THIS SHIFT. PATIENT'S SISTER WILL BE HERE TOMORROW. PATIENT APPEARS TO BE COMFORTABLE AT THIS TIME. BED LOW, CALL LIGHT IN REACH. REPORT HAS BEEN GIVEN TO ASSUMING NURSE.
--- NOTE | 2018-11-25 04:28 | NUR ---
SBT PROPOFOL OFF @ 0415. PT OPENS EYES TO STIMULI. FOLLOWS SIMPLE COMMANDS. DENIES C/O PAIN AT THIS TIME BY SHAKING HEAD "NO". RT AT BEDSIDE.
[2018-11-25 04:50] LABS: Hematocrit 32.2 % (37.0-53.0); Hemoglobin 9.8 g/dL (13.5-17.5); Mean Corpuscular HGB 28.6 pg (26.0-34.0); Mean Corpuscular HGB Conc 30.4 g/dL (31.5-36.5); Mean Corpuscular Volume 94 fL (80-100); Mean Platelet Volume 11.4 fL (9.1-12.4); Platelet Count 251 K/mm3 (150-400); RDW Coefficient Variation 20.8 % (11.7-14.2); RDW Standard Deviation 70.1 fL (35.1-46.3); Red Blood Cell Count 3.43 M/mm3 (4.30-5.90); White Blood Cell Count 9.37 K/mm3 (4.00-11.30)
[2018-11-25 05:05] LABS: PO2 Arterial 68.4 mmHg (80-100); pH Blood Arterial 7.49 (7.35-7.45)
--- NOTE | 2018-11-25 05:05 | NUR ---
SEDATION SBT COMPLETE AT THIS TIME- SEE RT DOCUMENTATION. PT IS AWAKE AND ALERT. ANXIOUS AND SLIGHTLY AGITATED. CONTINUES TO FOLLOW SIMPLE COMMANDS. PROPOFOL RESTARTED @ 30MCG/KG/MIN AT THIS TIME. BILATERAL SOFT WRIST RESTRAINTS REMAIN IN PLACE.
[2018-11-25 05:12] LABS: Alanine Aminotransfer (ALT/SGP 12 U/L (12-78); Albumin, Blood 1.9 g/dL (3.4-5.0); Albumin/Globulin Ratio 0.5 (0.8-1.8); Alk Phos 181 U/L (50-136); Anion Gap 11 mmol/L (6-16); Aspartate Aminotrans (AST/SGOT 36 U/L (12-37); Bilirubin, Total 2.4 mg/dL (0.1-1.0); Blood Urea Nitrogen 36 mg/dL (8-24); Bun/Creatinine Ratio 39.4 (12.0-20.0); CO2, Blood 26 mmol/L (21-32); Calcium, Blood 7.9 mg/dL (8.5-10.1); Chloride, Blood 105 mmol/L (98-108); Creatinine, Blood 0.91 mg/dL (0.60-1.20); Globulin, Blood 3.5 g/dL (2.2-4.0); Glomerular Filtration Rate >60 (60-); Glucose, Blood 114 mg/dL (70-99); Magnesium, Blood 2.2 mg/dL (1.6-2.4); Phosphorus, Blood 2.4 mg/dL (2.5-4.9); Potassium, Blood 3.2 mmol/L (3.5-5.5); Sodium, Blood 142 mmol/L (136-145); Total Protein, Blood 5.4 g/dL (6.4-8.2); Vancomycin, Trough 13.4 ug/mL (5.0-10.0)
[2018-11-25 05:44] LABS: BAND PERCENT MAN 7 % (0-8); BASOPHILS PERCENT MAN 0 % (0-2); EOSINOPHILS ABSOLUTE MAN 0.09 K/mm3 (0.00-0.68); EOSINOPHILS PERCENT MAN 1 % (0-6); LYMPHOCYTES % ATYPICAL MANUAL 1 % (0-0); LYMPHOCYTES ABSOLUTE MAN 0.37 K/mm3 (0.84-5.20); LYMPHOCYTES PERCENT MAN 3 % (21-46); MONOCYTES ABSOLUTE MAN 0.56 K/mm3 (0.16-1.47); MONOCYTES PERCENT MAN 6 % (4-13); NEUTROPHILS ABSOLUTE MAN 8.33 K/mm3 (1.96-9.15); SEG NEUTROPHILS PERCENT MAN 82 % (41-73); TOTAL CELLS COUNTED 100
--- NOTE | 2018-11-25 06:45 | NUR ---
SHIFT SUMMARY NO ACUTE CHANGES DURING NOC. REMAINS INTUBATED- AC 16, TV 400, PEEP 5, FIO2 30%. SEDATED WITH PROPOFOL BETWEEN 20-30MXG/KG/MIN- NOW INFUSING @ 25MCG/KG/MIN. FOLLOWS SIMPLE COMMANDS. AWAKE AND ALERT WHEN SEDATION DECREASED. BILATERAL SOFT WRIST RESTRAINTS REMAIN IN PLACE- PT DOES REACH FOR ETT. MEDICATED WITH FENTANYL 25MCG IV X 2 DURING SHIFT. MONITOR SHOWS AFIB, RATE 115-130s. LEVOPHED INFUSED BETWEEN 6-10MCG/MIN- NOW @ 7MCG/MIN. VASOPRESSIN CONTINUES @ 0.04UNITS/MIN. NS INFUSING @ 75CC/HR. PROTONIX GTT @ 8MG/HR (10CC/HR). DR. GIBBS NOTIFIED OF ABNORMAL LABS- NEW ORDERS RECEIVED. OG TO LIS WITH 240CC COFFEE-GROUND DRAINAGE. WESTON PATENT- 450CC URINE. PAS TO BLE. WILL REPORT TO DAY SHIFT RN WHEN AVAILABLE.
--- NOTE | 2018-11-25 08:15 | NUR ---
INITIAL ASSESSMENT PATIENT INTUBATED AND SEDATED. PATIENT RESPONDS TO PAINFUL STIMULI. PATIENT WEAK BUT ABLE TO MOVE ALL EXTREMITIES. PATIENT AFEBRILE. PATIENT SATTING WELL ON AC 16, TV 400, PEEP 5, 30% FIO2. LUNGS CLEAR IN UPPER LOBES AND DIMINISHED IN LOWER LOBES. MODERATE AMOUNT OF THICK, GARCIA SPUTUM BEING SUCTIONED FROM ETT. PATIENT IN A. FIB, HR 1-TEENS TO 130S. MAP OVER 65 ON PRESSORS. RADIAL PULSES 2+, PULSES 1+ IN FEET. 1+ EDEMA IN BLES. ABDOMEN MODERATELY DISTENDED, SOFT, WITH TYMPANIC BS. OG TO LIS DRAINING DARK BROWN LIQUID. PATIENT HAS NOT HAD BM SINCE ADMIT. WESTON DRAINING ELTON, PINK, CLOUDY URINE WITH SEDIMENT NOTED. SCAR UNDER UMBILICUS, ABRASION TO MID CHEST, MASSES NOTED TO ELBOWS, COCCYX REDDENED. PROPOFOL INFUSING AT 25 MCG/ KG/ MINUTE, LEVOPHED AT 7 MCG/ MINUTE, VASOPRESSIN AT 0.04 UNITS/ MINUTE, NS AT 75 MLS/ HOUR, PROTONIX AT 10 MLS/ HOUR. BED LOW, CALL LIGHT IN REACH. WILL CONTINUE TO MONITOR PATIENT FREQUENTLY THROUGHOUT SHIFT.
--- NOTE | 2018-11-25 12:15 | NUR ---
PATIENT RESTING QUIETLY IN BED. PATIENT HAD PRN FENTANYL SHORT TIME AGO FOR GRIMACING. NO SIGNS OF PAIN OR DISCOMFORT AT THIS TIME. PATIENT AFEBRILE. PROPOFOL INFUSING AT 30 MCG/ KG/ MINUTE. PATIENT REMAINS SATTING WELL ON SAME VENT SETTINGS. PATIENT IN A. FIB/ A. FLUTTER, HR 1-TEENS TO 120S. MAP IS OVER 65 ON PRESSORS. SUPPOSITORY GIVEN PATIENT HAS NOT HAD BM SINCE ADMIT. NO OTHER ACUTE CHANGES TO NOTE ON AT THIS TIME. WILL CONTINUE TO MONITOR.
--- NOTE | 2018-11-25 12:38 | NUR ---
PATIENT'S SISTER, STEPHEN, HAS ARRIVED AND HAS BEEN UPDATED ON PATIENT STATUS.
--- NOTE | 2018-11-25 15:59 | NUR ---
DR. GIBBS INFORMED OF PATIENT'S CONTINUED GRIMACING DESPITE GIVING 25 MCG OF PRN IV FENTANYL. ORDER RECEIVED.
--- NOTE | 2018-11-25 16:11 | NUR ---
PATIENT REMAINS INTUBATED AND ON SEDATION. PATIENT HAS APPEARED TO HAVE MORE PAIN THAN USUAL. PATIENT WAS GRIMACING AND SHAKING HEAD BACK AND FORTH EVEN AFTER ADMINISTRATION OF 25 MCG PRN IV FENTANYL. SPOKE WITH DR. GIBBS CONCERNING CONTROLLING PATIENT'S PAIN. 25MCG MORE OF PRN IV FENTANYL GIVEN. PATIENT NOW APPEARS COMFORTABLE- CNVI OF ZERO. PATIENT AFEBRILE. PATIENT REMAINS SATTING WELL ON SAME VENT SETTINGS. SMALL AMOUNT OF FROTHY, CLEAR SPUTUM BEING SUCTIONED FROM ETT. PATIENT IN A. FIB/ A. FLUTTER. HR LOW 100S TO 120S. BP STABLE ON PRESSORS. LEVOPHED IS NOW AT 5 MCG/ MINUTE. URINE IS ORANGE, CLOUDY, WITH SEDIMENT NOTED. SISTER IS AT BED SIDE. NO OTHER ACUTE CHANGES TO NOTE ON AT THIS TIME. WILL CONTINUE TO MONITOR.
--- NOTE | 2018-11-25 17:44 | NUR ---
DR. AGUSTIN IN TO SEE PATIENT.
--- NOTE | 2018-11-25 19:00 | NUR ---
ASSUMED CARE ASSUMED CARE OF PATIENT. REMAINS INTUBATED- AC 16, TV 400, PEEP 5, FIO2 30%. COPIOUS ORAL SECRETIONS NOTED. SEDATED WITH PROPOFOL @ 30MCG/KG/MIN. PT OPENS EYES TO VERBAL STIMULI AND FOLLOWS SIMPLE COMMANDS. PULLS AGAINST RESTRAINTS. BILATERAL SOFT WRIST RESTRAINTS IN PLACE TO PREVENT SELF-EXTUBATION. REJI, 2MM. MONITOR SHOWS AFIB/FLUTTER, RATE 90-120s. BP STABLE WITH LEVOPHED @ 5MCG/MIN. VASOPRESSIN INFUSING @ 0.04UNITS/HR PER ORDER. NS IVF DC'D BY MD- CHANGED TO TKO. PROTONIX GTT INFUSING @ 8MG/HR (10CC/HR) PER ORDER. RIGHT CHEST MEDIPORT NOTED. OG TO LIS WITH DARK BROWN DRAINAGE. WESTON PATENT AND DRAINING ORANGISH CLOUDY URINE WITH SEDIMENT. PAS TO BLE. SISTER AT BEDSIDE. SEE SHIFT ASSESSMENT FOR FULL ASSESSMENT.
--- NOTE | 2018-11-25 19:26 | NUR ---
SHIFT SUMMARY PATIENT REMAINS INTUBATED AND ON SEDATION. PATIENT REMAINS RESPONDING TO PAINFUL STIMULI. PATIENT'S PAIN SEEMED TO ESCALATE THROUGHOUT THE SHIFT. FENTANYL ORDER CHANGED AND PATIENT'S PAIN HAS SEEMED CONTROLLED WELL WITH IT THUS FAR. PATIENT REMAINED AFEBRILE. PATIENT REMAINS SATTING WELL ON AC 16, TV 400, PEEP 5 AND 30% FIO2. LUNGS REMAIN CLEAR IN THE UPPER LOBES AND DIMINISHED IN THE LOWER LOBES. SECRETIONS FROM ETT CHANGED FROM MODERATE, THICK AND GARCIA TO SMALL, FROTHY AND CLEAR. PATIENT IN A. FIB TO A. FLUTTER. HR LOW 100S TO 130S. BP STABLE ON PRESSORS. ABLE TO TITRATE DOWN SLIGHTLY ON LEVOPHED. ABDOMEN REMAINS MODERATELY DISTENDED, SOFT, WITH TYMPANIC BS. SUPPOSITORY GIVEN THIS SHIFT BUT NO BM YET. OG TO LIS- NO OUTPUT THIS SHIFT. WESTON REMAINS DRAINING ORANGE, CLOUDY URINE WITH SEDIMENT NOTED. NO CHANGE TO SKIN. PROPOFOL INFUSING AT 30 MCG/ KG/ MINUTE, LEVOPHED AT 5 MCG/ MINUTE, VASOPRESSIN AT 0.04 UNITS/ MINUTE, NS AT 75 MLS/ HOUR AND PROTONIX AT 10 MLS/ HOUR. PATIENT HAD AMP OF CALCIUM GLUCONATE AND 40 MEQ POTASSIUM THIS MORNING FOR LOW VALUES. DR. AGUSTIN CONSULTED TODAY FOR COFFEE GROUND OUTPUT FROM OG. IN TO SEE PATIENT TODAY AND STATED HE WILL BE SCOPING TOMORROW. PATIENT'S SISTER ARRIVED TODAY AND HAS BEEN IN ROOM MOST OF THE DAY. SISTER STATED THAT SHE WILL BE STAYING THE NIGHT AND ACCOMODATIONS WERE MADE IN ROOM FOR HER. PATIENT APPEARS COMFORTABLE AT THIS TIME. BED LOW, CALL LIGHT IN REACH. REPORT HAS BEEN GIVEN TO ASSUMING ROUSTABOUT HAND NURSE.
--- NOTE | 2018-11-25 19:30 | NUR ---
PAIN/AGITATION PT WITH INCREASED AGITATION NOTED. PULLING AGAINST RESTRAINTS AND THRASHING HEAD BACK AND FORTH ON PILLOW. FACIAL GRIMACING NOTED. MEDICATED WITH FENTANYL 50MCG IV FOR CNVI 2/. PROPOFOL INCREASED TO 40MCG/KG/MIN.
[2018-11-26 04:34] LABS: BASOPHILS ABSOLUTE AUTO 0.01 K/mm3 (0.00-0.23); BASOPHILS PERCENT AUTO 0 % (0-2); EOSINOPHILS ABSOLUTE AUTO 0.18 K/mm3 (0.00-0.68); EOSINOPHILS PERCENT AUTO 2 % (0-6); Hematocrit 29.6 % (37.0-53.0); Hemoglobin 8.9 g/dL (13.5-17.5); IMMATURE GRAN ABSOLUTE AUTO 0.33 K/mm3 (0.00-0.10); IMMATURE GRAN PERCENT AUTO 5 % (0-1); LYMPHOCYTES ABSOLUTE AUTO 0.61 K/mm3 (0.84-5.20); LYMPHOCYTES PERCENT AUTO 8 % (21-46); MONOCYTES ABSOLUTE AUTO 0.87 K/mm3 (0.16-1.47); MONOCYTES PERCENT AUTO 12 % (4-13); Mean Corpuscular HGB 28.8 pg (26.0-34.0); Mean Corpuscular HGB Conc 30.1 g/dL (31.5-36.5); Mean Corpuscular Volume 96 fL (80-100); Mean Platelet Volume 11.6 fL (9.1-12.4); NEUTROPHILS ABSOLUTE AUTO 5.41 K/mm3 (1.96-9.15); NEUTROPHILS PERCENT AUTO 73 % (41-73); Platelet Count 198 K/mm3 (150-400); RDW Coefficient Variation 20.2 % (11.7-14.2); RDW Standard Deviation 70.2 fL (35.1-46.3); Red Blood Cell Count 3.09 M/mm3 (4.30-5.90); White Blood Cell Count 7.41 K/mm3 (4.00-11.30)
[2018-11-26 04:47] LABS: Anion Gap 7 mmol/L (6-16); Blood Urea Nitrogen 27 mg/dL (8-24); Bun/Creatinine Ratio 39.4 (12.0-20.0); CO2, Blood 29 mmol/L (21-32); Calcium, Blood 7.8 mg/dL (8.5-10.1); Chloride, Blood 108 mmol/L (98-108); Creatinine, Blood 0.69 mg/dL (0.60-1.20); Glomerular Filtration Rate >60 (60-); Glucose, Blood 106 mg/dL (70-99); Magnesium, Blood 2.2 mg/dL (1.6-2.4); Potassium, Blood 3.3 mmol/L (3.5-5.5); Sodium, Blood 144 mmol/L (136-145)
--- NOTE | 2018-11-26 05:45 | NUR ---
SBT PROPOFOL OFF AT 0500 FOR WEANING TRIAL. RT AT BEDSIDE AT 0515. SBT COMPLETE AND PROPOFOL RESTARTED @ 0545. LEVOPHED AND VASOPRESSIN RESTARTED AT THIS TIME. WILL CONTINUE TO MONITOR.
[2018-11-26 05:51] LABS: PCO2 Arterial 39.3 mmHg (35-45); PO2 Arterial 64.4 mmHg (80-100); pH Blood Arterial 7.47 (7.35-7.45)
[2018-11-26 06:28] LABS: Stool Occult Blood Guaiac 1 Neg (Neg)
--- NOTE | 2018-11-26 06:30 | NUR ---
SHIFT SUMMARY NO ACUTE CHANGES DURING NOC. REMAINS INTUBATED. SEDATED WITH PROPOFOL AT 35MCG/KG/MIN THIS AM. FOLLOWS SIMPLE COMMANDS. MEDICATED WITH FENTANYL 50MCG IV X 2 DURING SHIFT FOR CNVI 10/31. BILATERAL SOFT WRIST RESTRAINTS REMAIN IN PLACE. LEVOPHED INFUSED BETWEEN 1-5MCG/MIN DURING SHIFT- NOW @ 3MCG/MIN. WAS COMPLETELY OFF FOR APPROXIMATELY ONE HOUR. VASOPRESSIN AT 0,04UNITS/MIN. PROTONIX GTT CONTINUES. OG TO LIS WITH 20OCC DARK BROWN DRAINAGE. WESTON PATENT AND DRAINING. SCDs REMAIN OFF AT THIS TIME FOR PT COMFORT. WILL REPORT TO DAY SHIFT RN WHEN AVAILABLE.
--- NOTE | 2018-11-26 08:00 | NUR ---
INITIAL ASSESSMENT PATIENT INTUBATED AND SEDATED ON PROPOFOL. PATIENT RESPONDING TO PAINFUL STIMULI. RECEIVED REPORT THAT WHEN PATIENT IS OFF OF SEDATION THAT HE FOLLOWS SIMPLE COMMANDS AND NODS/ SHAKES HEAD TO ANSWER YES AND NO QUESTIONS. PATIENT HAS NO SIGNS OF PAIN AT THIS TIME. PATIENT AFEBRILE. PATIENT SATTING WELL ON AC 16, TV 400, PEEP 5, AND 30% FIO2. LUNGS CLEAR IN UPPER LOBES AND DIMINISHED IN LOWER LOBES. MODERATE AMOUNT OF THICK, GARCIA SECRETIONS BEING SUCTIONED FROM ETT. PATIENT IN A. FIB/ A. FLUTTER WITH OCCASIONAL PVCS. HR 80S TO LOW 100S. MAP OVER 65 ON PRESSORS. 1+ EDEMA NOTED IN BLES. RADIAL PULSES 2+, PULSES IN FEET 1+. ABDOMEN MODERATELY DISTENDED, SOFT, WITH TYMPANIC BS. PATIENT HAD BM ON CAN SEALER. OG TO LIS, DRAINING SMALL AMOUNT OF DARK BROWN LIQUID. WESTON DRAINING ORANGE, CLOUDY COLORED URINE WITH SEDIMENT NOTED. SCAR UNDER UMBILICUS, ABRASION TO MID CHEST, MASSES TO BILAT ELBOWS, COCCYX REDDENED. PROPOFOL INFUSING AT 30 MCG/ KG/ MINUTE, LEVOPHED INFUSING AT 4 MCG/ MINUTE, VASOPRESSIN AT 0.04 UNITS/ MINUTE, NS TKO, PROTONIX AT 10 MLS/ HOUR. 20 MM KPHOS ORDERED FOR THIS MORNING FOR LOW AM LEVELS. SISTER IS AT BEDSIDE. BED LOW, CALL LIGHT IN REACH. WILL CONTINUE TO MONITOR PATIENT FREQUENTLY THROUGHOUT SHIFT.
--- NOTE | 2018-11-26 09:09 | NUR ---
11/26/18 0909 Stacie Tesfaye PATIENT IS INTUBATED ON PRESSORS AND SEDATED LIGHTLY, OCCASIONAL GRIMACES AND MOMENT OF EXTREMETIES. SISTER, STEPHEN IS HERE TO SIGN CONSENT, THEN WILL WAIT IN ICU WAITING AREA. MONITOR INTACT WITH CONTINUOUS PULSE OXIMETRY AND INTERMITTENT BP, PATIENT WILL LOW B/P AND OCCASIONAL MAP ONLY. WILL DISCUSS WITH DR AGUSTIN UPON HIS ARRIVAL. DOPE WORKER TO MANAGE THE MEDICATION TITRATION DURING THE CASE, NEVAEH WHITEHEAD.
--- NOTE | 2018-11-26 09:20 | NUR ---
SCOPE PROCEDURE BEING STARTED BY DR. AGUSTIN. PROPOFOL INCREASED TO 40 MCG/ KG/ MINUTE. 0922: LEVOPHED INCREASED TO 20 MCG/ MINUTE. 0923: 2 MG VERSED GIVEN. 0925: PROPOFOL INCREASED TO 45 MCG/ KG/ MINUTE. 0927: FIO2 ON VENT INCREASED TO 100%. 0935: SCOPE COMPLETE. PROPOFOL DECREASED TO 30 MCG / KG/ MINUTE. LEVOPHED DECREASED TO 15 MCG/ MINUTE. 0938: FIO2 DECREASED TO 80%. 0939: FIO2 DECREASED TO 60%. 0943: LEVOPHED DECREASED TO 4 MCG/ MINUTE.
--- NOTE | 2018-11-26 10:59 | NUR ---
PATIENT ON TUBE COMPENSATION TRIAL WITH RT.
--- NOTE | 2018-11-26 11:52 | NUR ---
PATIENT EXTUBATED SUCCESSFULLY. PATIENT PLACED ON 6 L HIGH FLOW CANNULA AND SATTING OVER 92%. SISTER IS AT BEDSIDE. DR. GIBBS AND RT IN ROOM.
--- NOTE | 2018-11-26 12:59 | NUR ---
PATIENT RESTING IN BED WITH SISTER AT BEDSIDE. PATIENT EXTUBATED EARLIER AND HAS BEEN SATTING WELL ON 6 L HIGH FLOW. PATIENT HAS OCCASIONAL, NONPRODUCTIVE, MOIST COUGH. PATIENT IS LABILE. PATIENT HAS HISTORY OF ASPERGER'S AND YELLS OUT. PATIENT'S SISTER STATES THIS IS NORMAL FOR HIM. PATIENT AFEBRILE. PATIENT REMAINS IN A.FIB/ A. FLUTTER, HR 90S TO 1-TEENS. MAP OVER 65 ON LEVOPHED DRIP. LEVOPHED INFUSING AT 4 MCG/ MINUTE. PROPOFOL AND VASOPRESSIN STOPPED WHEN PATIENT EXTUBATED. OG ALSO DC'D WHEN PATIENT EXTUBATED. NO OTHER ACUTE CHANGES TO NOTE ON AT THIS TIME. WILL CONTINUE TO MONITOR.
--- NOTE | 2018-11-26 13:49 | NUR ---
INFORMED DR. GIBBS OF POTASSIUM RESULT OF 3.2.
--- NOTE | 2018-11-26 14:37 | NUR ---
DR. GIBBS INFORMED OF PHOSPHORUS OF 2.2.
--- NOTE | 2018-11-26 16:37 | NUR ---
PATIENT REMAINS SATTING WELL ON 6 L HIGH FLOW. PATIENT REMAINS IN A. FIB, HR LOW 100S TO 140S. BP STABLE ON LEVOPHED. WESTON NOW DRAINING ORANGE COLORED/ CLEAR URINE. NO OTHER CHANGES TO NOTE ON AT THIS TIME. WILL CONTINUE TO MONITOR.
--- NOTE | 2018-11-26 18:55 | NUR ---
SHIFT SUMMARY PATIENT EXTUBATED BEFORE NOON TODAY. PATIENT HAS ASPERGER'S- ALERT AND ORIENTED TO SELF, FAMILY, PERSON, AND FOLLOWING DIRECTIONS. PATIENT'S SPEECH CAN BE DIFFICULT TO UNDERSTAND SOMETIMES. PATIENT WEAK BUT ABLE TO MOVE ALL EXTREMITIES. PATIENT HAS REMAINED AFEBRILE. PATIENT HAS RECEIVED PRN IV FENTANYL FOR COMPLAINTS OF PAIN "ALL OVER, IN BELLY, AND BUTT". PRN IV ATIVAN GIVEN OT FOR INCREASED ANXIETY/ AGITATION, PATIENT ALSO YELLING OUT. PATIENT'S CAREGIVER POINTED OUT THAT HE ALSO TAKES ATIVAN AT HOME. PATIENT SATTING WELL MOST OF THE DAY ON 6 L HIGH FLOW BUT IS NOW SATTING WELL ON 2 L NC. LUNGS HAVE REMAINED CLEAR IN UPPER LOBES AND DIMINISHED IN LOWER LOBES. PATIENT HAS OCCASIONAL, NONPRODUCTIVE, MOIST COUGH. PATIENT HAS REMAINED IN A. FIB, HR RANGED BETWEEN 80S TO 140S. PATIENT GIVEN IV DIGOXIN THIS SHIFT. DR. STEWARD. BP HAS REMAINED STABLE WITH PRESSORS. VASOPRESSIN DC'D THIS SHIFT. ABDOMEN REMAINS MODERATELY DISTENDED, SOFT, NONTENDER, WITH TYMPANIC BS. PATIENT SCOPED BY DR. AGUSTIN- NO INTERVENTIONS NEEDED PERFORMED. ATTENDS IN PLACE FOR INCONTINENCE. PATIENT NPO UNTIL SWALLOW EVAL TOMORROW. WESTON DRAINING ADEQUATE AMOUNTS OF ORANGE/ CLEAR URINE. NO CHANGE TO SKIN. PATIENT REPOSITIONED Q2H AND PRN. LEVOPHED INFUSING AT 1 MCG/ MINUTE, NS TKO. POTASSIUM AND PHOSPHORUS REPLACEMENTS GIVEN THIS SHIFT. PT/OT TO SEE PATIENT TOMORROW. FAMILY/ FRIENDS HAVE BEEN IN AND OUT ALL DAY AND HELP TO KEEP CALM AND RELAXED. DR. GIBBS HAD TALK WITH PATIENT'S SISTER AND THEY HAVE CHANGED PATIENT TO LIMITED CODE WITH INTUBATION ONLY. BED LOW, CALL LIGHT IN REACH. WILL CONTINUE TO MONITOR PATIENT FREQUENTLY UNTIL REPORT GIVEN TO ONCOMING ASBESTOS WORKER NURSE SHORTLY.
--- NOTE | 2018-11-26 19:27 | NUR ---
ASSUMED PT CARE PT SITTING UPRIGHT IN BED WITH SISTER AT BEDSIDE. PT ALERT AND RESPONDING APPROPRIATELY TO QUESTIONS. SLURRED SPEECH NOTED, WHICH IS PT'S BASELINE PER REPORT. LEVOPHED GTT AT 1MCG/KG/MIN; AND NS TKO VIA MEDIPORT TO RIGHT UPPER CHEST. PT APPEARS COMFORTABLE AT THIS TIME. CALL LIGHT IS WITHIN REACH. PT DOES NOT APPEAR TO BE IN ANY DISTRESS AT THIS TIME.
--- NOTE | 2018-11-27 02:49 | NUR ---
PT RESTLESS/HOLLERING OUT T/O NIGHT. MEDICATED WITH PRN ZYPREXA. PT RECEIVED PRN ATIVAN AT 1800. HR GENERALLY MAINTAINS IN THE 130'S-140'S AND RECENTLY HAS BEEN 150'S-160'S. NOTIFIED DR. MAYNARD. PT HAS A ROUND, FIRM, DISTENDED ABDOMEN WITH HYPOACTIVE BT. RECORDS SHOW PT HAD A MEDIUM BM YESTERDAY. PT IS UNCOMFORTABLE IN GENERAL.
[2018-11-27 04:20] LABS: BASOPHILS ABSOLUTE AUTO 0.04 K/mm3 (0.00-0.23); BASOPHILS PERCENT AUTO 0 % (0-2); EOSINOPHILS ABSOLUTE AUTO 0.07 K/mm3 (0.00-0.68); EOSINOPHILS PERCENT AUTO 1 % (0-6); Hematocrit 38.5 % (37.0-53.0); Hemoglobin 11.7 g/dL (13.5-17.5); IMMATURE GRAN ABSOLUTE AUTO 0.67 K/mm3 (0.00-0.10); IMMATURE GRAN PERCENT AUTO 6 % (0-1); LYMPHOCYTES ABSOLUTE AUTO 0.61 K/mm3 (0.84-5.20); LYMPHOCYTES PERCENT AUTO 5 % (21-46); MONOCYTES PERCENT AUTO 13 % (4-13); Mean Corpuscular HGB Conc 30.4 g/dL (31.5-36.5); Mean Platelet Volume 11.4 fL (9.1-12.4); NEUTROPHILS ABSOLUTE AUTO 9.02 K/mm3 (1.96-9.15); NEUTROPHILS PERCENT AUTO 75 % (41-73); NRBC ABSOLUTE 0.04 K/mm3 (0.00-0.02); NRBC Auto 0.3 /100 WBC (0.0-0.2); Platelet Count 231 K/mm3 (150-400); Red Blood Cell Count 4.18 M/mm3 (4.30-5.90); White Blood Cell Count 12.01 K/mm3 (4.00-11.30)
[2018-11-27 04:37] LABS: Mean Corpuscular Volume 92 fL (80-100)
[2018-11-27 04:44] LABS: Anion Gap 11 mmol/L (6-16); Blood Urea Nitrogen 21 mg/dL (8-24); Bun/Creatinine Ratio 36.5 (12.0-20.0); CO2, Blood 26 mmol/L (21-32); Calcium, Blood 7.8 mg/dL (8.5-10.1); Chloride, Blood 108 mmol/L (98-108); Creatinine, Blood 0.58 mg/dL (0.60-1.20); Glomerular Filtration Rate >60 (60-); Glucose, Blood 66 mg/dL (70-99); Magnesium, Blood 2.1 mg/dL (1.6-2.4); Potassium, Blood 3.5 mmol/L (3.5-5.5); Sodium, Blood 145 mmol/L (136-145)
--- NOTE | 2018-11-27 05:21 | NUR ---
PHYSICIAN NOTIFIED NEW ORDERS TO REPLACE K-PHOS 20 MMOL IV NOW.
[2018-11-27 05:31] LABS: PCO2 Arterial 35.3 mmHg (35-45); PO2 Arterial 59.3 mmHg (80-100); pH Blood Arterial 7.51 (7.35-7.45)
--- NOTE | 2018-11-27 05:47 | NUR ---
END OF SHIFT SUMMARY PT HAS BEEN RESTLESS T/O ENTIRE NIGHT. HAS NOT RESTED/SLEPT ONCE. PT IS ALERT TO HIMSELF AND HIS FAMILY; ABLE TO FOLLOW DIRECTIONS. PT MOANING OUT IN DISCOMFORT. PT HAS BEEN REPOSITIONED EVERY TWO HOURS, IF NOT MORE FREQUENTLY. DONUT CUSHION WAS OBTAINED FOR BOTTOM TO RELIEVE PRESSURE; PT COULDN'T STAND CUSHION FOR TOO LONG; THEREFORE, PILLOWS WERE FLOATED FOR COMFORT. SISTER HAS BEEN AT BEDSIDE ALL NIGHT. VERY CONCERNED FOR PT'S WELL BEING. ABDOMEN CONTINUED TO BE ROUND, DISTENEDED, FIRM, AND TENDER. PT BURPING FREQUENTLY AND DISPLAYING GENERAL DISCOMFORT. SISTER STATED PT HADN'T HAD A BM IN SEVERAL DAYS; HOWEVER, REPORTS SHOW THAT PT HAD A MEDIUM YESTERDAY. ABDOMINAL XRAY WAS OBTAINED DUE TO PT'S DISCOMFORT; RESULTS PENDING. ORDERS WERE RETRIEVED TO GIVE 0.5MG DOSE OF ATIVAN; APPEARED EFFECTIVE; HOWEVER, PT STILL RESTLESS. PT HAS BEEN IN AFIB/A-FLUTTER ALL NIGHT WITH HR GENERALLY 130-140'S WITH HR GETTING HIGH 170 WITH PT EXTREMELY ANXIOUS/UNCOMFORTABLE. DR. MAYNARD AWARE.
--- NOTE | 2018-11-27 09:50 | NUR ---
MALE PATIENT YELLING FOR WATER WHEN ROOM ENTERED. GIVEN WET MOUTH SPONGES. BELLY VERY ROUND AND FIRM. HAS AN ENLARGED LIVER BUT ALSO STATES HE HAS TO HAVE A BM. UP WITH GATEBELT AND WALKED VERY STRONGLY TO BSC. HAD A HUGE LITE BROWN BM. [facility] IN TO SEE PAT. SWALLOWING WELL EVEN PILLS. KEEPS YELLING. GIVEN ZYPREXA AND COREG FOR HIS AT FIB W RVR. AMB BACK TO BSC BUT NO MORE STOOL. AMB BACK TO BED. VERY WEAK AND LESS ABLE TO AMB. LUNGS MUCH CLERAER. ON RA AND IDA WELL.
--- NOTE | 2018-11-27 12:26 | NUR ---
COMP OF NAUSEA. MED WITH ZOFRAN WITH SOME RELIEF.
--- NOTE | 2018-11-27 17:15 | NUR ---
TURNED Q2 HOURS AND KEPT OFF HIS COCCYX. NO MORE STOOLS. FEELING PAIN IN ABD AND WAS GIVEN FENTANYL WITH GOOD PAIN RELIEF. DRANK SOME MILK AND XYPREXAW/O DIFF. PAT IS MED FLOOR AND HOSPICE PATIENT.
--- NOTE | 2018-11-27 19:30 | NUR ---
ASSUME CARE: REPORT RECIEVED FROM LEIDY OFF GOING RN. FAMILY AT BEDSIDE ATTENTIVE TO CARES. DR AGUSTIN IN TO SEE PATIENT. SPOKE WITH DR Manisha PETTY ORDERS NOTED. ABDOMEN DISTENDED WITH HYPOACTIVE BOWEL SOUNDS. INCONTINENT OF BOWEL AND BLADDER . LG SEEDY GREENISH YELLOW STOOL AND URINE. LINEN CHANGED AND PARTIAL BED BATH GIVEN. CONTINUES TO MOAN AND CALL OUT MEDICATED WITH ATIVAN IV FOR AGITATION. NEW ORDERS NOTED. DISCUSSED WITH SISTER NG PLACEMENT. REFUSED AT THIS TIME. WILL CONTINUE COMFORT CARE. AND REPORT CHANGE IN PATIENT CONDITION. DRESSING TO COCCYX CHANGED WITH LINEN CHANGE.
--- NOTE | 2018-11-28 01:21 | NUR ---
MEDICATED WITH ATIVAN 0.5MG IV HALDOL CAUSED HALLUCINATIONS AND INCREASED AGITATION PER FAMILY. WILL CONTINUE TO MONITOR AND REPORT CHANGE IN PATIENT CONDITION.
--- NOTE | 2018-11-28 04:22 | NUR ---
DISCUSSED NG PLACEMENT WITH FAMILY . DECLINED AT THIS TIME WILL CONTINUE WITH PRESENT MEDICATION REGIME. MEDICATED WITH MS 4MG IV . IS RESTING QUIETLY, RESPIRATIONS REGULAR AND EASY. NOT CALLING OUT OR MOANING. CONTINUE TO MONITOR AND REPORT CHANGE IN PATIENT CONDITION.
--- NOTE | 2018-11-28 05:55 | NUR ---
SHIFT SUMMARY: RESTS QUIETLY WHEN UNDISTURBED. FAMILY AT BEDSIDE, ATTENTIUVE TO NEEDS/ CARES. RESPIRATIONS REGULAR AND EASY ON ROOM AIR SPOT CHECK SPO2 GREATER THAN 90%. CONTINUE TO MONITOR AND REPORT CHANGE IN PATIENT CONDITION
--- NOTE | 2018-11-28 08:08 | NUR ---
ASSUMED CARE: REPORT RECEIVED FROM SEJAL Cotton RN. ASSUMED CARE OF THIS PT AT APPROX 0700. ON ASSUMING CARE, THE PT IS RESTING QUIETLY. HIS SISTER, STEPHEN, HAS STEPPED OUT OF THE ROOM. HE IS BREATHING EASILY W/ NO S/SX PAIN, DISCOMFORT OR DISTRESS. PT IS COMFORT CARE STATUS. WILL CONTINUE TO MONITOR & UPDATE NEEDED.
--- NOTE | 2018-11-28 09:00 | NUR ---
DR. PETTY: PROVIDER AT BEDSIDE TO SEE PT & DISCUSS FURTHER POC W/ PT's SISTER, STEPHEN. THEY AGREE THAT THE PT SHOULD BE GOING HOME ON HOSPICE TODAY & ORDERS HAVE BEEN PLACED. WILL CONTINUE TO MONITOR & UPDATE NEEDED.
[2018-11-28] MEDS ORDERED: CARV3.125 PO (11:26)
[2018-11-28] MEDS ORDERED: BISA10S PR (11:34)
[2018-11-28] MEDS ORDERED: OLAN5A MM (11:36)
[2018-11-28] MEDS ORDERED: MORP20L SL (11:37)
[2018-11-28] MEDS ORDERED: PANT40 PO (11:38)
--- NOTE | 2018-11-28 12:45 | NUR ---
DISCHARGED HOME W/ HOSPICE: [facility] [employer] HAS BEEN CONTACTED TO VERIFY THAT HOSPICE BED IS BEING DELIVERED TO PT's [facility]. THEY HAVE STATED THAT THE BED SHOULD ARRIVE AT APPROXIMATELY THE SAME TIME THE PT ARRIVES. [facility] AT BEDSIDE, REPORT HAS BEEN GIVEN, THEY DENY FURTHER QUESTIONS. PT TRANSPORTED OUT VIA GURNEY, PT's SISTER HAS TAKEN ALL OF PT's BELONGINGS W/ HER. D/C EDUCATION HAS BEEN COMPLETED W/ SISTER, STEPHEN, & D/C PACKET HAS BEEN TAKEN BY HER. HARD SCRIPTS FOR OXYCODONE & ROXANOL TAKEN BY PT's SISTER WELL. PIV x3 HAVE BEEN REMOVED & MEDIPORT IS HEPARIN LOCKED FOR USE BY SENIOR STEREO COMPILER TEAM LEAD PRN PER DR. Manisha PETTY.
== END 2018-11-28 12:45 | disposition hospice, home (50) | DRG 870 ==
LOC: ER 09:29 → ICUW 14:35 → ERHOLD 14:35 → PCU 16:00 → ICUW 21:00
PROVIDERS: Emergency Medicine; Internal Medicine Critical Care Medicine; Nurse Practitioner Acute Care; ADMIT Internal Medicine
PROC: 5A12012 Performance of Cardiac Output, Single, Manual (ICD-10-PCS; principal; 2018-11-22)
PROC: 3E033XZ Introduction of Vasopressor into Peripheral Vein, Percutaneous Approach (ICD-10-PCS; 2018-11-22)
PROC: 5A1955Z Respiratory Ventilation, Greater than 96 Consecutive Hours (ICD-10-PCS; 2018-11-22)
PROC: 0BH18EZ Insertion of Endotracheal Airway into Trachea, Via Natural or Artificial Opening Endoscopic (ICD-10-PCS; 2018-11-22)
PROC: 0DJ08ZZ Inspection of Upper Intestinal Tract, Via Natural or Artificial Opening Endoscopic (ICD-10-PCS; 2018-11-26)
DX: A41.9 Sepsis, unspecified organism (principal); G93.41 Metabolic encephalopathy; E43 Unspecified severe protein-calorie malnutrition; I46.9 Cardiac arrest, cause unspecified; J69.0 Pneumonitis due to inhalation of food and vomit; J96.01 Acute respiratory failure with hypoxia; K22.11 Ulcer of esophagus with bleeding; N17.9 Acute kidney failure, unspecified; C18.0 Malignant neoplasm of cecum; C78.7 Secondary malignant neoplasm of liver and intrahepatic bile duct; C78.00 Secondary malignant neoplasm of unspecified lung; I42.6 Alcoholic cardiomyopathy; C78.1 Secondary malignant neoplasm of mediastinum; E78.5 Hyperlipidemia, unspecified; M10.9 Gout, unspecified; G62.9 Polyneuropathy, unspecified; Z86.718 Personal history of other venous thrombosis and embolism; Z68.20 Body mass index [BMI] 20.0-20.9, adult; I48.91 Unspecified atrial fibrillation; F10.20 Alcohol dependence, uncomplicated; Z51.5 Encounter for palliative care; R45.1 Restlessness and agitation; E87.6 Hypokalemia; E83.39 Other disorders of phosphorus metabolism; Z66 Do not resuscitate; Z90.49 Acquired absence of other specified parts of digestive tract; Z92.21 Personal history of antineoplastic chemotherapy; D50.0 Iron deficiency anemia secondary to blood loss (chronic)
CPT/HCPCS: 31500; 31720; 36415; 36600; 70450; 71045; 74018; 80048; 80053; 80162; 80202; 81001; 82140; 82272; 82330; 82533; 82803; 82947; 83605; 83735; 83880; 84100; 84132; 84484; 85014; 85018; 85025; 85610; 87040; 87070; 87086; 87205; 92610; 93005; 93010; 94002; 94003; 96361; 96374; 99285-25; C9113; J0610; J1160; J1265; J1430; J1630; J1642; J1650; J1940; J1956; J2060; J2185; J2250; J2270; J2405; J3010; J3370; J3480; J7030; J7050; J7060; J7120